=== PATIENT | female | born 1970 | race Caucasian/White ===

== ENCOUNTER → 2017-07-01 06:59 | Outpatient (CLI) | payer OTHER, SELFPAY ==
--- NOTE | 2017-07-01 07:01 | BI_ITS ---
MAMMOGRAPHY - BILATERAL SCREENING REASON FOR EXAM: Female, 47 years old. Routine annual screening examination. PERTINENT HISTORY: Non-contributory. TECHNIQUE: Digital bilateral breast ephraim (3D mammographic acquisition) in the CC and MLO projections. 2-D mediolateral oblique (MLO) and craniocaudad (CC) views of both breasts were obtained. CAD: Full Field Digital Mammography with Computer Added Detection was performed. COMPARISON: Comparison is made with prior study dated March 31, 2016 and March 07, 2015. FINDINGS: Breast Composition: There are scattered areas of fibroglandular density. There are no dominant masses or suspicious calcifications. Stable small bilateral benign appearing intramammary lymph nodes. No other significant abnormalities are identified. There has been no significant change since the prior study. BI/SCREENING MAMM (CAD), BILAT IMPRESSION: Stable bilateral screening mammogram. Yearly follow-up mammogram recommended. (A) ASSESSMENT CATEGORY: BIRADS Category 2: Benign. A letter regarding these results will be sent to the patient by the facility within 30 days. Approximately 10% of breast cancers are not detected by mammography. A normal mammogram should not delay biopsy of a clinically suspicious abnormality. [id number] Electronically Signed: Stefan Maldonado MD at 10:48 EDT Tel [phone], Service support ,
== END ==
PROVIDERS: Family Provider Family Medicine; PCP Family Medicine; Visit Provider Obstetrics & Gynecology
DX: Z12.31 Encounter for screening mammogram for malignant neoplasm of breast (principal)
CPT/HCPCS: 77063; 77067

== ENCOUNTER → 2018-07-12 07:18 | Outpatient (CLI) | payer OTHER, SELFPAY ==
--- NOTE | 2018-07-12 07:21 | BI_ITS ---
MAMMOGRAPHY - BILATERAL SCREENING REASON FOR EXAM: Female, 48 years old. Routine annual screening examination. PERTINENT HISTORY: Non-contributory. TECHNIQUE: Digital bilateral breast ephraim (3D mammographic acquisition) in the CC and MLO projections. 2-D mediolateral oblique (MLO) and craniocaudad (CC) views of both breasts were obtained. CAD: Full Field Digital Mammography with Computer Added Detection was performed. COMPARISON: Comparison is made with prior examination dated July 01, 2017 and March 31, 2016. FINDINGS: Breast Composition: There are scattered areas of fibroglandular density. There are no dominant masses or suspicious calcifications. Stable benign-appearing intramammary lymph nodes in the right breast as well as in the upper lateral aspect of the left breast. No other significant abnormalities are identified. There has been no significant change since the prior study. BI/SCREENING MAMM (CAD), BILAT IMPRESSION: Stable bilateral screening mammogram. Yearly follow-up mammogram recommended. (A) ASSESSMENT CATEGORY: BIRADS Category 2: Benign. A letter regarding these results will be sent to the patient by the facility within 30 days. Approximately 10% of breast cancers are not detected by mammography. A normal mammogram should not delay biopsy of a clinically suspicious abnormality. [id number] Electronically Signed: Stefan Maldonado, at 9:05 EDT , Service support ,
== END ==
PROVIDERS: Family Provider Family Medicine; PCP Family Medicine; Referring Provider Obstetrics & Gynecology; Visit Provider Obstetrics & Gynecology
DX: Z12.31 Encounter for screening mammogram for malignant neoplasm of breast (principal)
CPT/HCPCS: 77063; 77067

== ENCOUNTER → 2019-11-16 07:14 | Outpatient (CLI) | payer OTHER, SELFPAY ==
[2019-05-11 16:48] VITALS: BMI 44.4
--- NOTE | 2019-11-16 07:16 | BI_ITS ---
MAMMOGRAPHY - BILATERAL SCREENING 3-D TOMOSYNTHESIS REASON FOR EXAM: Female, 49 years old. Annual screening mammogram. PERTINENT HISTORY: No significant family history. TECHNIQUE: 2-D mammograms and 3-D Tomosynthesis of the breast (s) were performed. CAD was performed. COMPARISON: 07/12/2018, 07/01/2017 FINDINGS: The breast composition is almost entirely fat. Scattered benign calcifications are seen. No dense spiculated masses or suspicious microcalcifications are identified. No architectural distortion is identified. There is no skin thickening or retraction. Stable lymph nodes. There has been no significant change since the prior study. BI/SCREEN MAMM (CAD) W/SOFÍA BILAT IMPRESSION: No mammographic signs of malignancy. Routine yearly mammograms recommended. ASSESSMENT CATEGORY: BIRADS Category 2: Benign. A letter regarding these results will be sent to the patient by the facility within 30 days. FOLLOW UP RECOMMENDATION: Yearly follow up mammogram recommended. (A) Approximately 10% of breast cancers are not detected by mammography. A normal mammogram should not delay biopsy of a clinically suspicious abnormality. Electronically Signed: Eddie Umana MD at 17:38 EDT , Service support ,
== END ==
PROVIDERS: PCP Family Medicine; Referring Provider Student in an Organized Health Care Education/Training Program; Visit Provider Student in an Organized Health Care Education/Training Program
DX: Z12.31 Encounter for screening mammogram for malignant neoplasm of breast (principal)
CPT/HCPCS: 77063; 77067

== ENCOUNTER → 2021-02-08 08:13 | Outpatient (CLI) | payer OTHER, SELFPAY ==
--- NOTE | 2021-02-08 08:25 | BI_ITS ---
MAMMOGRAPHY - BILATERAL SCREENING REASON FOR EXAM: Female, 51 years old. Routine annual screening examination. PERTINENT HISTORY: Non-contributory. TECHNIQUE: Digital bilateral breast sofía (3D mammographic acquisition) in the CC and MLO projections. 2-D mediolateral oblique (MLO) and craniocaudad (CC) views of both breasts were obtained. CAD: Full Field Digital Mammography with Computer Added Detection was performed. COMPARISON: Comparison is made with prior study dated 11/16/2019 and 07/12/2018. FINDINGS: Breast Composition: The breasts are almost entirely fatty. There are no dominant masses or suspicious calcifications. Stable benign-appearing bilateral intramammary lymph nodes in the upper outer quadrant of both breasts. No other significant abnormalities are identified. There has been no significant change since the prior study. BI/SCRN MAMM (CAD)W/SOFÍA BILAT IMPRESSION: Stable bilateral screening mammogram. Yearly follow-up mammogram recommended. (A) ASSESSMENT CATEGORY: BIRADS Category 2: Benign. A letter regarding these results will be sent to the patient by the facility within 30 days. Approximately 10% of breast cancers are not detected by mammography. A normal mammogram should not delay biopsy of a clinically suspicious abnormality. [id number] Electronically Signed: Stefan Maldonado MD at 8:30 EST , Service support ,
== END ==
PROVIDERS: PCP Family Medicine; Referring Provider Student in an Organized Health Care Education/Training Program; Visit Provider Student in an Organized Health Care Education/Training Program
DX: Z12.31 Encounter for screening mammogram for malignant neoplasm of breast (principal)
CPT/HCPCS: 77063; 77067

== ENCOUNTER 2021-04-11 16:59 | Outpatient (CLI) | payer OTHER, SELFPAY ==
[2021-04-16 12:49] LABS: HPV APTIMA, High Risk Negative (Negative)
== END 2021-04-11 23:59 | disposition short-term general hospital (02) ==
PROVIDERS: PCP Family Medicine; Referring Provider Student in an Organized Health Care Education/Training Program; Visit Provider Student in an Organized Health Care Education/Training Program
DX: Z12.4 Encounter for screening for malignant neoplasm of cervix (principal)
CPT/HCPCS: 87624; 88175; G0145

== ENCOUNTER → 2022-04-28 | Outpatient (CLI) | payer OTHER, SELFPAY ==
--- NOTE | 2022-04-28 16:17 | BI_ITS ---
MAMMOGRAPHY - BILATERAL SCREENING REASON FOR EXAM: Female, 52 years old. Routine annual screening examination. PERTINENT HISTORY: Non-contributory. TECHNIQUE: Digital bilateral breast sofía (3D mammographic acquisition) in the CC and MLO projections. 2-D mediolateral oblique (MLO) and craniocaudad (CC) views of both breasts were obtained. CAD: Full Field Digital Mammography with Computer Added Detection was performed. COMPARISON: Comparison is made with prior study dated 02/08/2021 and 11/16/2019. FINDINGS: Breast Composition: The breasts are almost entirely fatty. There are no dominant masses or suspicious calcifications. Stable benign appearing bilateral intramammary lymph nodes. No other significant abnormalities are identified. There has been no significant change since the prior study. BI/SCRN MAMM (CAD)W/SOFÍA BILAT IMPRESSION: Stable bilateral screening mammogram. Yearly follow-up mammogram recommended. (A) ASSESSMENT CATEGORY: BIRADS Category 2: Benign. A letter regarding these results will be sent to the patient by the facility within 30 days. Approximately 10% of breast cancers are not detected by mammography. A normal mammogram should not delay biopsy of a clinically suspicious abnormality. [id number] Electronically Signed: Stefan Maldonado MD at 8:46 EST ,
== END | disposition home or self-care (01) ==
LOC: OPBI 04-29 07:31
PROVIDERS: PCP Family Medicine; Visit Provider Student in an Organized Health Care Education/Training Program
DX: Z12.31 Encounter for screening mammogram for malignant neoplasm of breast (principal)
CPT/HCPCS: 77063; 77067

== ENCOUNTER 2022-09-11 07:23 | Day surgery (SDC) | payer OTHER, SELFPAY ==
[2022-09-11] VITALS (7 sets, daily range): BP systolic 104–136; BP diastolic 64–74; PULSE 56–69; RESP 1–17; TEMP 36.2–36.6; O2SAT 97–100; BMI 48.0
[2022-09-11] MEDS: Lactated Ringers 1,000 ML 15 ML IV (07:46)
[2022-09-11 08:11] LABS: Bedside Glucose 152 mg/dL (74-106)
--- NOTE | 2022-09-11 08:17 | HP.PCM_ITS ---
HPI - General HPI Narrative GLADIS TEIXEIRA, is a 52 F who presents for screening colonoscopy. The patient denies any abdominal pain or blood in the stool. She has no family history of colon cancer. She has never had a colonoscopy in the past. [facility] Medical History Arthritis Excessive somnolence disorder Hx LEEP (loop electrosurgical excision procedure), cervix, Long-term insulin use in type 2 diabetes Non-smoker Obesity, morbid Obstructive sleep apnea on CPAP BETARICE (obstructive sleep apnea) plantar fasciitis surgery Seasonal allergies Type 2 diabetes mellitus Vertigo Home Medications glyburide 5 mg tablet 5 mg PO BID 05/02/19 [History Last Taken Unknown] lisinopril 10 mg tablet 10 mg PO DAILY 05/02/19 [History Last Taken 09/11/22] dulaglutide 1.5 mg/0.5 mL subcutaneous pen injector (Trulicity) 1.5 mg (0.5 mL) subcut QWEEK #2 mL 05/11/19 [Rx Last Taken Unknown] insulin glargine 100 unit/mL (3 mL) subcutaneous pen (Basaglar KwikPen U-100 Insulin) 30 unit subcut .q hs 05/11/19 [History Last Taken Unknown] loratadine 10 mg tablet 10 mg PO DAILY 05/11/19 [History Last Taken Unknown] Allergy/AdvReac Type Severity Reaction Status Date / Time codeine Allergy Intermediate Vomiting Verified 09/11/22 07:45 metformin HCl Allergy Mild Diarrhea Verified 09/11/22 07:45 [From Glucophage] Family History Unknown Arthritis Diabetes Hormone disorder Polycystic ovaries Surgical History H/O dilation and curettage H/O lateral meniscus repair of left knee H/O: History of tubal ligation Hx of cholecystectomy S/P endometrial ablation S/P foot surgery, right S/P LASIK surgery of both eyes Social History Smoking Status: Never smoker Past Medical/Surgical History Planned Operation Planned Operative Procedure/s: CSCOPE Previous Hospitalizations/Surgeries HX Hospitalizations: No Any Problems With Anesthesia: No You/Your Family Experience Fever (Hyperthermia) With Anes: No Cholinesterase deficiency: No Cardiovascular Hx of Irregular Heartbeat and/or Afib: No Hx Heart Attack: No Hx Congestive Heart Failure: No Hx Hypertension: No Hx Pacemaker: No Respiratory Hx Chronic Obstructive Pulmonary Disease (COPD): No Hx Asthma: No Hx Emphysema: No Hx Sleep Apnea: Yes CPAP: No BIPAP: Yes Hx Respiratory Tract Infection/Cold (presently): No Result (for STOP score): Positive Smoking Status: Never smoker Gastrointestinal Hx Gastroesophageal Reflux: Yes Controlled With Meds: Yes Hx Ulcer: No Neurological Hx Seizures: No Hx Head/Neck Injury: No Hx Headaches: Yes Hx Back Injury/Pain: No Does patient have nerve stimulator: No Miscellaneous Recent Exposure to Contagious Disease: No Allergies codeine Allergy (Intermediate, Verified 09/11/22 07:45) Vomiting metformin HCl [From Glucophage] Allergy (Mild, Verified 09/11/22 07:45) Diarrhea Discharge Is Pt Admitted From a Senior Care, or a Half-Way: No After D/C, Where Do you Plan to Go: Return Home Vital Signs Vital Signs Vital Signs: 09/11/22 07:48 09/11/22 07:48 Temperature 97.8 F Temperature Source Temporal Pulse Rate 69 Respiratory Rate 17 Respiratory Pattern Normal Blood Pressure 136/74 H Blood Pressure Mean 94 Blood Pressure Source Monitor Blood Pressure Position Semi-Fowlers Blood Pressure Location Left Arm Pulse Ox 97 Oxygen Delivery Method Room Air Weight Weight: 288 lb 9.361 oz Body Mass Index (BMI) 48.0 Physical Exam Const alert and oriented x3 HEENT normocephalic Eyes PERRL Resp normal respiratory effort and normal air movement Cardio regular rate and regular rhythm GI soft to palpation, non-tender and non-distended Extremity normal to inspection Assessment & Plan Assessment/Plan (1) Encounter for screening for malignant neoplasm of colon: PLAN: I explained endoscopy in detail to the patient. I explained the risks including but not limited to stroke or heart attack with anesthesia, perforation of the GI tract, bleeding, infection. I explained that any of these could necessitate further emergency surgery. The patient understands and all questions were answered sufficiently. The patient wishes to proceed with procedure. Harrison Cruz MD Pager: [facility] [address] [place] [address], [address] [place] [phone] Office: Surgery Risks - Colonoscopy Risks Include but are not Limited To: Risks include but are not limited to: Bleeding, perforation requiring further surgery, inability to complete colonoscopy requiring barium enema.
--- NOTE | 2022-09-11 09:08 | OP.CCLET_ITS ---
09/11/2022 Kendall Garcia [address] [place] [place] [address] Re : Colonoscopy procedure for Myra Colunga Dear Dr. Garcia This procedure was performed on Sunday, September 11, 2022. My impressions and recommendations are as follows: Impressions : - The entire examined colon is normal on direct and retroflexion views. - No specimens collected. Recommendations : - Discharge patient to home. - Resume previous diet. - Continue present medications. - Repeat colonoscopy in 10 years for screening purposes. My findings are described in the full procedure note, which is enclosed. If I can be of further assistance, please feel free to contact me at Doctor phone number(s): , Work: . Sincerely, Harrison Cruz MD 09/11/2022 9:07:36 AM This report has been signed electronically.
--- NOTE | 2022-09-11 09:08 | OP.COLON_ITS ---
Patient Name: Myra Colunga Procedure Date: 09/11/2022 8:46 AM Date of : 1970 Age: 52 Procedure: Colonoscopy Indications: Screening for colorectal malignant neoplasm Providers: Harrison Cruz MD Referring MD: Harrison Cruz MD Medicines: Monitored Anesthesia Care Patient Profile: This is a 52 year old female. Refer to note in patient chart for documentation of history and physical. Last Colonoscopy: none. The patient's first colonoscopy is today. Complications: No immediate complications. Procedure: Pre-Anesthesia Assessment: - Prior to the procedure, a History and Physical was performed, and patient medications and allergies were reviewed. The patient's tolerance of previous anesthesia was also reviewed. The risks and benefits of the procedure and the sedation options and risks were discussed with the patient. All questions were answered, and informed consent was obtained. Prior Anticoagulants: The patient has taken no previous anticoagulant or antiplatelet agents. After reviewing the risks and benefits, the patient was deemed in satisfactory condition to undergo the procedure. After I obtained informed consent, the scope was passed under direct vision. Throughout the procedure, the patient's blood pressure, pulse, and oxygen saturations were monitored continuously. The pediatric colonoscope was introduced through the anus and advanced to the cecum, identified by appendiceal orifice and ileocecal valve. The colonoscopy was performed without difficulty. The patient tolerated the procedure well. The quality of the bowel preparation was good. Scope In: 8:53:10 AM Scope Withdrawal Time 0 hours 6 minutes 43 seconds Scope Out: 9:05:23 AM Total Procedure Duration Time 0 hours 12 minutes 13 seconds Findings: The entire examined colon appeared normal on direct and retroflexion views. Impression: - The entire examined colon is normal on direct and retroflexion views. - No specimens collected. Recommendation: - Discharge patient to home. - Resume previous diet. - Continue present medications. - Repeat colonoscopy in 10 years for screening purposes. Procedure Code(s): --- Professional --- 71988, Colonoscopy, flexible; diagnostic, including collection of specimen(s) by brushing or washing, when performed (separate procedure) Diagnosis Code(s): --- Professional --- Z12.11, Encounter for screening for malignant neoplasm of colon CPT copyright 2017 [employer]. All rights reserved. The codes documented in this report are preliminary and upon federal mediation commissioner review may be revised to meet current compliance requirements. Harrison Cruz MD 09/11/2022 9:07:36 AM This report has been signed electronically. Number of Addenda: 0 Note Initiated On: 09/11/2022 8:46 AM
== END 2022-09-11 09:57 | disposition home or self-care (01) ==
LOC: EN 07:24 → AC 07:24
PROVIDERS: PCP Family Medicine; Referring Provider Surgery; Visit Provider Surgery
PROC: 0DJD8ZZ Inspection of Lower Intestinal Tract, Via Natural or Artificial Opening Endoscopic (ICD-10-PCS; CPT 45378; principal; 2022-09-11 08:25)
DX: Z12.11 Encounter for screening for malignant neoplasm of colon (principal); E66.01 Morbid (severe) obesity due to excess calories; Z68.42 Body mass index [BMI] 45.0-49.9, adult; E11.9 Type 2 diabetes mellitus without complications; Z79.4 Long term (current) use of insulin; G47.33 Obstructive sleep apnea (adult) (pediatric); Z79.899 Other long term (current) drug therapy
CPT/HCPCS: 45378; 82962; J7120; J2405

== ENCOUNTER → 2023-03-15 | Outpatient (CLI) | payer OTHER, SELFPAY ==
[2023-03-19 10:09] LABS: HPV APTIMA, High Risk Negative (Negative)
== END | disposition home or self-care (01) ==
LOC: LABSPEC 16:33
PROVIDERS: PCP Family Medicine; Referring Provider Advanced Practice Midwife; Visit Provider Advanced Practice Midwife
DX: Z12.4 Encounter for screening for malignant neoplasm of cervix (principal)
CPT/HCPCS: 87624; 88175; G0145

== ENCOUNTER → 2023-03-23 | Outpatient (CLI) | payer OTHER, SELFPAY ==
--- NOTE | 2023-03-23 07:13 | US_ITS ---
INDICATION: Postmenopausal bleeding. EXAMINATION: Ultrasound US Transvaginal Non-OB TECHNIQUE: Transvaginal (for optimal evaluation of the adnexa) pelvic ultrasound was performed. Grayscale, spectral waveform, and color flow Doppler evaluation of the adnexa. COMPARISON: No relevant prior comparison study available FINDINGS: UTERUS: The uterus measures 4.5 x 7.4 x 3.8 cm. There is a 1.7 x 1.5 x 1.9 cm round intramural focus within the anterior uterine fundus suggestive of a fibroid. The endometrial stripe measures 6.6 mm in AP diameter which is thickened for a postmenopausal patient. RIGHT OVARY: There is nonvisualization of the right ovary. LEFT OVARY: There is nonvisualization of the left ovary. FREE FLUID: None. US/Transvaginal Non- IMPRESSION: Thickened endometrial stripe. Uterine fibroid. Nonvisualization of the ovaries secondary to overlying bowel gas. Electronically Signed: Ita Owens MD at 8:28 EST ,
== END | disposition home or self-care (01) ==
LOC: US 07:12
PROVIDERS: PCP Family Medicine; Referring Provider Advanced Practice Midwife; Visit Provider Advanced Practice Midwife
DX: N95.0 Postmenopausal bleeding (principal)
CPT/HCPCS: 76830

== ENCOUNTER 2023-04-27 12:08 | Day surgery (SDC) | payer OTHER, SELFPAY ==
--- OUTSIDE RECORDS SUMMARY | 2023-04-27 12:30 | XMS RPT_ITS | CCD ---
Author Name Unknown Address [address] [place] [address] Organization [facility] Care Team Providers Care Silk Spotter Name Role Phone Mandy Gipson DC Unavailable JAVON RAMOS Admitting Unavailable JAVON RAMOS Attending Unavailable JAVON RAMOS Primary Care Unavailable JAVON RAMSO Consulting Unavailable PROVIDER, UNKNOWN Consulting Unavailable PROVIDER, UNKNOWN Consulting Unavailable PROVIDER, UNKNOWN Consulting Unavailable Mandy Gipson DC Unavailable Javon Ramos Primary Care Provider [phone] Javon Nickerson MD Unavailable [phone] Javon Ramos MD Unavailable Endocrinology Provider Unavailable Unavailab denis Lim, Dr. Bills Unavailable Sarah De Jesus MD Unavailable Andrew HEAVY EQUIPMENT SALES MANAGER, Yary Unavailable Day HEAVY EQUIPMENT SALES MANAGER, Emmie Unavailable Unavailable Gene HEAVY EQUIPMENT SALES MANAGER, Zina Ware Unavailable Unavailable Leonardo HEAVY EQUIPMENT SALES MANAGER, Jade Unavailable Unavailable Irwin HORVATH, Amanda Farooq Unavailable [phone] Arlen Otero Unavailable Unavailable Shanna RN, Mackenzie L Unavailable Unavail able Hernan CALERO, Maria Elena Unavailable Unavailable Geraldine Griffith RN Unavailable Tenzin HEAVY EQUIPMENT SALES MANAGER, Sarah Almendarez Unavailable Unavailab le Vess HEAVY EQUIPMENT SALES MANAGER, Maximilian Brown Unavailable Unavailable Shukri HEAVY EQUIPMENT SALES MANAGER, Lana Unavailable Unavailangelica e Unavailable Unavailable NAOMI LALA Attending Unavailable LANCE REGALADO Referring Unavailable JAVON RAMOS Primary Care Unavailable JAVON NICKERSON Admitting Unavailable JAVON NICKERSON Attending Unavailable JAVON NICKERSON Referring Unavailable JAVON RAMOS Primary Care Unavailable LANCE REGALADO Referring Unavailable VACCJAVON MONTOYA Primary Care Unavailable LANCE REGALADO Attending Unavailable JAVON NICKERSON Attending Unavailable JAVON RAMOS Primary Care Unavailable NICHOLAS PEDRAZAEK Attending Unavailable JAVON RAMOS [facility] Unavailable JAVON NICKERSON Attending Unavailable JAVON RAMOS Referring Unavailable JAVON RAMOS Primary Care Unavailable MARII GAVIN Attending Unavailable LANCE REGALADO Referring Unavailable JAVON RAMOS Primary Care Unavailable Allergies Allergy Classification Reported Allergen(s) Allergy Type Date of Onset Reaction(s) Facility (18 sources) acetaminophen / codeine drug allergy 7 Nausea [facility] Work Phone: (15 sources) Codeine Drug Allergy 0 Nausea And Vomiting [facility] (15 sources) metFORMIN Drug Allergy 8 [facility] (3 sources) metFORMIN Drug Allergy 4 [facility], [facility]. Medications Current Medications Medication Drug Class(es) Dates Sig (Normalized) Sig (Original) cholecalciferol 0.1 mg oral tablet (8 sources) Vitamin D Start: 02-08-2023 take 1 tablet by mouth once daily cholecalciferol (Vitamin D-3) 100 MCG (4000 UT) tablet Take 4,000 Units by mouth daily. 0 02/08/2023 Active 0.5 ml dulaglutide 3 mg/ml auto-injector (18 sources) GLP-1 Receptor Agonist Start: 01-14-2023 Trulicity 1.5 MG/0.5ML solution pen-injector INJECT 1 PEN-INJECTOR SUBCUTANEOUSLY ONCE A WEEK 0 01/14/2023 Active Completed/Discontinued Medications Medication Drug Class(es) Dates Sig (Normalized) Sig (Original) Accu-Chek Guide w/Device Kit (3 sources) Start: 10-02-2019 End: 11-12-2021 Accu-Chek Guide w/Device Kit ; 1 (one) Kit as needed for 0 days Quantity: 1 {Each} Refills: 0 Ordered: 12-Nov-2021 TE Morales Start: 02-Oct-2019 End: 12-Nov-2021 Status: Inactive Comments: Medication taken as needed. Problems Active Problems Problem Classification Problem Date Documented Da te Episodic/Chronic Abdominal hernia (8 sources) Hiatal hernia; Translations: [Diaphragmatic hernia without obstruction or gangrene] Onset: 03-02-2023 03-02-2023 Episodic Abdominal pain (2 sources) Indigestion; Translations: [Epigastric pain] 01-21-2023 Episodic Diabetes mellitus with complications (18 sources) Diabetes mellitus; Translations: [Diabetes mellitus without mention of complication, type II or unspecified type, uncontrolled] 07-11-2014 Chronic Diabetes mellitus without complication (20 sources) Type 2 diabetes mellitus without complication; Translations: [Type 2 diabetes mellitus without complications] Onset: 01-21-2023 01-21-2023 Chronic Diabetes mellitus without complication (3 sources) Hyperglycemia; Translations: [Hyperglycemia, unspecified] 11-17-2013 Episodic Essential hypertension (20 sources) Essential hypertension; Translations: [Essential (primary) hypertension] Onset: 01-21-2023 01-21-2023 Chronic Gastritis and duodenitis (8 sources) Chronic superficial gastritis; Translations: [Chronic superficial gastritis without bleeding] Onset: 03-01-2023 03-01-2023 Chronic Immunizations and screening for infectious disease (3 sources) Immunization due; Translations: [Encounter for immunization] 11-12-2021 Episodic Inflammation; infection of eye (except that caused by tuberculosis or sexually transmitteddisease) (3 sources) Conjunctivitis; Translations: [Other mucopurulent conjunctivitis, unspecified eye] 02-05-2020 Episodic Nutritional deficiencies (1 source) Vitamin D deficiency; Translations: [Vitamin D deficiency, unspecified] 02-08-2023 Chronic Other aftercare (20 sources) Long-term current use of insulin; Translations: [senior care (current) use of insulin] 11-26-2022 Episodic Other aftercare (3 sources) Drug indicated; Translations: [Other laborer marine terminal (current) drug therapy] 05-11-2011 Episodic Other aftercare (2 sources) senior care (current) use of insulin; Translations: [intermediate accountant (current) use of insulin (HCC)] Onset: 03-02-2023 Episodic Other and unspecified benign neoplasm (8 sources) Gastric polyp; Translations: [Polyp of stomach and duodenum] Onset: 03-02-2023 03-02-2023 Episodic Other circulatory disease (3 sources) Nevus, non-neoplastic 02-26-2012 Episodic Other disorders of stomach and duodenum (3 sources) Nonulcer dyspepsia; Translations: [Functional dyspepsia] Onset: 03-02-2023 03-02-2023 Episodic Other disorders of stomach and duodenum (1 source) Functional dyspepsia; Translations: [Functional dyspepsia] Onset: 03-02-2023 Episodic Other endocrine disorders (20 sources) Polycystic ovaries; 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] Onset: 08-04-2016 08-04-2016 Chronic Other endocrine disorders (8 sources) Diabetes insipidus; 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] Onset: 08-04-2016 08-04-2016 Chronic Other infections; including parasitic (3 sources) Personal history of other infectious and parasitic diseases 11-26-2022 Episodic Other liver diseases (3 sources) Elevated liver enzymes level; Translations: [Abnormal levels of other serum enzymes] 10-10-2012 Episodic Other non-traumatic joint disorders (20 sources) Arthritis; Translations: [Unspecified osteoarthritis, unspecified site] Onset: 08-04-2016 08-04-2016 Chronic Other nutritional; endocrine; and metabolic disorders (20 sources) Body mass index 40+ - severely obese; Translations: [Morbid (severe) obesity due to excess calories] 01-21-2023 Chronic Other nutritional; endocrine; and metabolic disorders (20 sources) Morbid obesity; Translations: [Morbid (severe) obesity due to excess calories] Onset: 01-15-2023 01-15-2023 Chronic Other nutritional; endocrine; and metabolic disorders (3 sources) Obesity; Translations: [Obesity, unspecified] 11-17-2013 Chronic Other nutritional; endocrine; and metabolic disorders (2 sources) Morbid (severe) obesity due to excess calories; Translations: [Morbid (severe) obesity due to excess calories (HCC)] Onset: 03-11-2023 Chronic Other nutritional; endocrine; and metabolic disorders (2 sources) Body mass index (BMI) 45.0-49.9, adult; Translations: [Body mass index (BMI) 45.0-49.9, adult (HCC)] Onset: 03-11-2023 Chronic Other nutritional; endocrine; and metabolic disorders (2 sources) Weight loss; Translations: [Weight Loss] Onset: 03-11-2023 Episodic Other screening for suspected conditions (not mental disorders or infectious disease) (20 sources) Decreased vitamin B12 level; Translations: [Other specified abnormal findings of blood chemistry] 02-08-2023 Episodic Other skin disorders (3 sources) Skin tag; Translations: [Other hypertrophic disorders of the skin] 02-26-2012 Episodic Other upper respiratory disease (15 sources) Seasonal allergic rhinitis; Translations: [Other seasonal allergic rhinitis] 11-26-2022 Chronic Other upper respiratory infections (15 sources) Acute frontal sinusitis; Translations: [Acute frontal sinusitis, unspecified] 08-27-2022 Episodic Pneumonia (except that caused by tuberculosis or sexually transmitted disease) (3 sources) Left lower zone pneumonia; Translations: [Pneumonia, unspecified organism] 01-23-2015 Episodic Residual codes; unclassified (20 sources) Obstructive sleep apnea syndrome; Translations: [Obstructive sleep apnea (adult) (pediatric)] Onset: 01-21-2023 01-21-2023 Chronic Past or Other Problems Problem Classification Problem Date Documented Da te Episodic/Chronic Deficiency and other anemia (18 sources) Anemia; Translations: [Anemia, unspecified] Onset: 08-04-2016 08-04-2016 Episodic Other bone disease and musculoskeletal deformities (20 sources) Segmental and somatic dysfunction; Translations: [Segmental and somatic dysfunction of lumbar region] Onset: 08-04-2016 08-04-2016 Episodic Spondylosis; intervertebral disc disorders; other back problems (18 sources) Lumbar radiculopathy; Translations: [Radiculopathy, lumbar region] Onset: 08-04-2016 08-04-2016 Episodic Unclassified (3 sources) Cold Symptoms - Symptoms include nasal congestion, sore throat, dry cough and general malaise, but do not include fever. The onset was sudden 9 day(s) ago. The symptoms occur constantly. The patient describes this as worsening. Current treatment includes non-prescription cold medication. Risk factors do not include smoking. Note for Upper respiratory infection : -At home covid test negative 08-27-2022 Unclassified (1 source) Well adult female - The patient feels well with no complaints, has good energy level and is sleeping well. The patient has a balanced diet. The patient sleeps 8 hours per night. 11-01-2020 Unclassified (1 source) [ADDITIONAL REASON] Follow up for multiple chronic conditions - The patient is here for follow-up of diabetes, obesity and other condition(s) (BEATRICE). The patient always takes the prescribed medications. No side effects noted. The patient has low activity level and no regular exercise program. The patient's glucose levels are monitored daily (see log). The patient states that weight is unchanged, mood is unchanged and sleep patterns have improved. Note for Multiple chronic conditions follow-up : -Last documented visit with endocrine was 04/2019. She is released from their care. 11-01-2020 Unclassified (3 sources) Well adult female 10-02-2019 Unclassified (3 sources) Follow up for multiple chronic conditions - The patient is here for follow-up of diabetes, obesity and other condition(s) (BEATRICE). The patient always takes the prescribed medications. No side effects noted. The patient has low activity level and no regular exercise program. The patient's glucose levels are monitored daily (see log). The patient states that weight is unchanged, mood is unchanged and sleep patterns have improved. Note for Multiple chronic conditions follow-up : -At last visit stopped Basaglar and started NOvolin. Has glucose log with her today. 03-16-2019 Unclassified (3 sources) Pre-operative clearance - Surgical procedure(s) planned: arthroscopy. Surgeon: (Dr Delgado) and Location of procedure: ([facility]) Note for Pre-operative clearance : -Her diabetes is not being treated with medication and her A1c is going up. Her surgery was delayed due to illness of Dr Kelley and she is now seeing Dr Delgado. 01-13-2017 Unclassified (3 sources) Pre-operative clearance - Note for Pre-operative clearance : -Foot surgery with general anesthesia. 06-10-2016 Unclassified (3 sources) follow up bp - follow up bp and glucoseno exercise, gaining weight againno chest pain, digestion prob 07-15-2015 Unclassified (3 sources) Cold Symptoms - Symptoms include sore throat, productive cough and general malaise, but do not include nasal congestion, ear pain or fever. The onset was gradual 6 day(s) ago. The symptoms occur constantly. The patient describes this as worsening. Current treatment includes cough suppressants (with codeine). Risk factors do not include smoking. The patient has not been exposed to an individual with similar symptoms. Note for Upper respiratory infection : -Went to urgent care at onset and was negative for strep. bought her some OTC Cherratussin with codine and it made her vomit. She now feels worse. 01-23-2015 Unclassified (3 sources) Follow-up for multiple chronic conditions (RAH) - The patient is here for follow-up of diabetes and obesity. The patient has stopped the recommended medications (cites she had too many low glucose readings with glyburide and ate too many carbs to keep it level, therefore she could not lose weight). The patient has an active lifestyle but no regular exercise program (tries to walk, difficult to do in winter) and has been following previous dietary instructions. The patient's glucose levels are monitored daily and out of office blood pressure checks occur occasionally. The patient has not been seen by an carpentry specialist in the past 12 months, experienced changes in vision since the last visit, had numbness in the feet, had tingling in the feet or had burning in the feet. 01-14-2015 Unclassified (3 sources) elevated glucose - Here to discuss need for medication. Home glucoses fasting range 140-160. She is trying to diet and exercise. She is following a low carb diet (usually less than 20carbs a day). Her fasting glucoses are often higher than later in the day. She trialed Metformin when she was trying to conceive and had PCOS and it caused diarrhea. Reports her brother also cannot tolerate it either.Had flu vaccine this year. 01-01-2014 Unclassified (3 sources) Well adult female - The patient feels well with minor complaints and has decreased energy level. The patient does not exercise. The patient sleeps 6 hours per night. Note for Well adult female : -Here to discuss recent labs. Does not need progress clerk care, goes to Dr Kerr. 11-17-2013 Unclassified (3 sources) Cold Symptoms - Symptoms include nasal congestion, runny nose, dry cough, productive cough, headache and facial pain (behind the eyes), but do not include fever. The onset was gradual 9 day(s) ago. The symptoms occur constantly. The patient describes this as moderate in severity and worsening. Current treatment includes non-prescription cold medication (sudafed). 08-18-2012 Unclassified (3 sources) multiple things - Has skin tag in left axilla that is catching on her clothing. She has 2 red spots on right abdomen and right lower leg that are itchy. She brought along a copy of screening labs from last year and wonders if she should have them done again. She is not fasting today.She is asking about having a TSH due to fatigue. 02-26-2012 Unclassified (3 sources) Cold Symptoms - Symptoms include nasal congestion (post nasal drainage, occasional nosebleeds), runny nose (at onset, resolved now), sore throat (at onset, resolved now), scratchy throat (tickles, feels dry in throat and nasal passages) and productive cough (thick from PND), but do not include fever. The onset was gradual 1 month(s) ago (started with a cold, now just sinus irritation). The symptoms occur constantly. The patient describes this as moderate in severity. Current treatment includes an oral decongestant (occasional use of Sudafed) and humidifier use (on furnace and in bedroom, used Neti-pot rinse). Risk factors do not include smoking. The patient has not been exposed to an individual with similar symptoms. Medical History Includes seasonal allergies. Note for Cold Symptoms : They have wood heat, she feels that is part of the problem. 04-04-2011 Unclassified (2 sources) [ADDITIONAL REASON] Well adult female - The patient feels well with no complaints, has good energy level and is sleeping well. The patient has a balanced diet. The patient sleeps 8 hours per night. 11-01-2020 Results Test Name Value Interpretation Reference Range Facil ity Vital Signs Date Time Vital Sign Value Performing Clinician Simran ambriz 03-19-2023 10:31-0500 Body height 165.1 cm Marii Gavin MD Work Phone: [facility] 03-19-2023 10:31-0500 Body mass index (BMI) [Ratio] 44.93 kg/m2 Marii Gavin MD Work Phone: [facility] 03-19-2023 10:31-0500 Body weight 122.47 kg Marii Gavin MD Work Phone: [facility] 03-19-2023 10:31-0500 Diastolic blood pressure 80 mm[Hg] Marii Gavin MD Work Phone: [facility] [employer] 03-19-2023 10:31-0500 Heart rate 73 /min Marii Gvain MD Work Phone: [facility] [employer] 03-19-2023 10:31-0500 SaO2% (BldA) [Mass fraction] 98 % Marii Gavin MD Work Phone: [facility] [employer] 03-19-2023 10:31-0500 Systolic blood pressure 140 mm[Hg] Marii Farooq Work Phone: [facility] [employer] 03-11-2023 12:12-0500 Body height 166.4 cm Nils Pedraza MD Work Phone: [facility] [employer] 03-11-2023 12:12-0500 Body mass index (BMI) [Ratio] 46.64 kg/m2 Nils Pedraza MD Work Phone: [facility] [employer] 03-11-2023 12:12-0500 Body weight 129.09 kg Nils Pedraza MD Work Phone: [facility] [employer] 03-11-2023 12:12-0500 Diastolic blood pressure 83 mm[Hg] Nils Pedraza MD Work Phone: [facility] [employer] 03-11-2023 12:12-0500 Heart rate 66 /min Nils Pedraza MD Work Phone: [facility] [employer] 03-11-2023 12:12-0500 Systolic blood pressure 129 mm[Hg] Nils Pedraza MD Work Phone: [facility] [employer] 03-11-2023 09:04-0500 Body height 165.1 cm Naomi Gonzales CNP Work Phone: [facility] [employer] 03-11-2023 09:04-0500 Body mass index (BMI) [Ratio] 46.76 kg/m2 Naomi Gonzales CNP Work Phone: [facility] [employer] 03-11-2023 09:04-0500 Body weight 127.46 kg Naomi Gonzales CNP Work Phone: [facility] [employer] 03-11-2023 09:04-0500 Diastolic blood pressure 82 mm[Hg] Naomi Gonzales CNP Work Phone: [facility] 03-11-2023 09:04-0500 Heart rate 77 /min Naomi Gonzales CNP Work Phone: [facility] 03-11-2023 09:04-0500 Respiratory rate 14 /min Naomi Gonzales CNP Work Phone: [facility] [employer] 03-11-2023 09:04-0500 SaO2% (BldA) [Mass fraction] 96 % Naomi Gonzales CNP Work Phone: [facility] Encounters Encounter Date Encounter Type Care Provider Facility Start: 03-19-2023 End: 03-19-2023 Historical Summary Javon Ramos MD Work Phone: [facility]. Start: 03-19-2023 End: 03-19-2023 [facility] Start: 03-19-2023 End: 03-19-2023 Office consultation new/estab patient 40 min Marii Gavin MD Work Phone: [facility] Procedures Date Procedure Procedure Detail Performing Clinician Start: 03-19-2023 Ecg routine ecg w/le ast 12 lds w/i&r Marii Gavin MD Work Phone: Start: 03-15-2023 End: 03-15-2023 Microscopic examination of cervical Papanicolaou smear Javon Ramos MD Work Phone: Plan of Treatment Date Care Activity Detail Author Start: 2030 RSV Immunization age d 60 or older (1 - 1-dose 60+ series) RSV Immunization aged 60 or older (1 - 1-dose 60+ series) [facility] Start: 02-06-2024 Hemoglobin A1c measurement Diabetes: Hemoglobin A1C [facility] Start: 02-06-2024 Lipid panel Lipid Panel [facility] Start: 05-11-2023 End: 02-09-2024 25-hydroxyvitamin D3 [Mass/volume] in Serum or Plasma Vitamin D Deficiency Screening (Vit D 25) Lab Routine Vitamin D deficiency Expected: 05/11/2023 (Approximate), Expires: 02/09/2024 [facility] Work Phone: Immunizations Immunization Date Immunization Notes Care Provider Fa cility 02-14-2022 COVID-Moderna (Bivalent 50 MCG/0.5 ML IM BST) Javon Ramos MD Work Phone: [facility]; [facility] 02-14-2022 influenza virus vaccine, unspecified formulation Javon Nickerson MD Work Phone: [facility] 11-12-2021 TD(adult) unspecifie d formulation Javon Ramos MD Work Phone: [employer]; [facility] Payers Date Payer Category Payer Private Health Insurance [id number] 2013 Private Health Insurance [facility] U[employer] OPT [id number] 2013-Present [address] [address] [place] [address] Commercial [id number] 1970 Unknown [id number] Unknown R Social History Date Type Detail Facility Start: 01-21-2023 [facility] Start: 01-21-2023 Tobacco use and exposure Smoke less tobacco non-user [facility] Start: 01-21-2023 End: 03-02-2023 Alcohol intake Ex-drinker (finding) [facility] Start: 1970 Sex Assigned At Female [facility] Start: 01-18-2023 Gender identity Identifies as female gender (finding) [facility] Start: 01-18-2023 Sexual orientation Heterosexual (fin ding) [facility] Start: 01-21-2023 End: 03-19-2023 History of Social function [employer]; [employer] Start: 01-21-2023 End: 03-19-2023 Tobacco use panel [facility] Start: 03-19-2023 Alcohol intake Current drinke r of alcohol (finding) [facility] Start: 03-19-2023 Alcohol Comment rarely twice yearly [facility] Tobacco Use: Tobacco Use: ; N ever smoker. [facility] Procedure Code Equipment Code Equipment Origin al Text Equipment Identifier Dates Contour Next Nany t In Vitro Strip ; 1 (one) Each twice a day for 0 days Quantity: 180 {Each} Refills: 3 Ordered: 12-Nov-2021 Andrew, TE Yary Start: 12-Nov-2021 Comments: may adjust quantity to suit patient needs [id number] Start: 11-12-2021 Clinical Notes 01-21-2023 to 03-19-2023 Marii Gavin MD - 03/19/2023 10:40 AM Neida Gagnon MA - 03/11/2023 12:30 PM Mehul Pedraza MD - 03/11/2023 12:30 PM WAN Valentine CNP - 03/11/2023 9:10 AM EST Note Date & Type Note Facility 03-19-2023 History of Presen t illness Narrative Images from the original note were not included. [facility] [address] [place] [address] [facility] [address] Dept: [phone] Dept Visit type: New : 1970 Reason for Visit: Pre-op Exam Assessment and Plan Pre op: asymptomatic, no murmur, euvolemic, no Q waves, acceptable activity tolerance. She may proceed to surgery without further need for testing. Low risk undergoing intermediate risk surgery. -weight loss and risk factor control Follow up if symptoms worsen or fail to improve. Subjective HPI Myra Colunga is a 53 year old female who presents for preop evaluation. She reports feeling fine, only complaint is knee pain from osteoarthritis. No chest pain or SOB, METs>4. No prior CAD, CVA or CHF. Nonsmoker. Review of Systems Respiratory: Negative for shortness of breath and wheezing. Cardiovascular: Negative for chest pain, palpitations and leg swelling. Musculoskeletal: Positive for arthralgias. Neurological: Negative for dizziness and syncope. Allergies Allergen Reactions Codeine Nausea And Vomiting Other reaction(s): Vomiting Metformin Hcl GI upset Outpatient Medications Prior to Visit Medication Sig Dispense Refill Basaglar KwikPen 100 UNIT/ML pen cholecalciferol (Vitamin D-3) 100 MCG (4000 UT) tablet Take 4,000 Units by mouth daily. Cyanocobalamin (Vitamin B-12) [address] 1 Dose under the tongue daily. glyBURIDE (Diabeta) 5 MG tablet lisinopril 10 MG tablet Loratadine 10 MG capsule Trulicity 1.5 MG/0.5ML solution pen-injector INJECT 1 PEN-INJECTOR SUBCUTANEOUSLY ONCE A WEEK Respiratory Therapy Supplies (CareTouch CPAP & BIPAP Hose) [facility] [place]-administered medications prior to visit. Past Medical History: Diagnosis Date Arthritis Diabetes (HCC) Hypertension Joint pain Morbid obesity, unspecified obesity type (HCC) 01/15/2023 BEATRICE (obstructive sleep apnea) Social History Tobacco Use Smoking status: Never Smokeless tobacco: Never Substance Use Topics Alcohol use: Yes Comment: rarely twice yearly Past Surgical History: Procedure Laterality Date SECTION, LOW TRANSVERSE 2000 and 2001 pfannenstiel DILATION AND CURETTAGE OF UTERUS 2008 ENDOMETRIAL ABLATION 2012 EYE SURGERY 2006 FOOT SURGERY 2006 plantar fascitis FOOT SURGERY 2006 correction of two claw toes LAP,CHOLECYSTECTOMY (HISTORICAL) 2003 MENISCECTOMY 2018 OTHER SURGICAL HISTORY N/A 1995 LEEP SURGERY TUBAL LIGATION 2001 concurrent to last UPPER GI ENDOSCOPY,EXAM (HISTORICAL) 03/02/2023 Family History Problem Relation Name Age of Onset Arthritis Mother Tiesha Berkowitz Arthritis Father Dimitri Berkowitz Cancer Father Dimitri Berkowitz Diabetes Father Dimitri Berkowitz Arthritis Brother Jean Paul Berkowitz Cancer Brother Charles Berkowitz Cancer Mother's Brother Jona Silverio Cancer Father's Brother Stephen Berkowitz Arthritis Maternal Grandmother Zaira Silverio Cancer Maternal Grandfather Rafael Silverio Cancer Paternal Grandmother Renetta Berkowitz Cancer Paternal Grandfather Cyrus Berkowitz Objective Vitals: 03/19/23 1031 BP: (!) 140/80 BP Location: Left arm Patient Position: Sitting BP Cuff Size: Adult Pulse: 73 SpO2: 98% Weight: 270 lb (122 kg) Height: 5' 5 (1.651 m) Physical Exam Constitutional: General: She is not in acute distress. Appearance: She is obese. HENT: Head: Normocephalic. Eyes: Pupils: Pupils are equal, round, and reactive to light. Neck: Vascular: No carotid bruit. Comments: No JVD Cardiovascular: Rate and Rhythm: Normal rate and regular rhythm. Pulses: Normal pulses. Heart sounds: Normal heart sounds. No murmur heard. No friction rub. No gallop. Pulmonary: Effort: Pulmonary effort is normal. No respiratory distress. Breath sounds: Normal breath sounds. No wheezing, rhonchi or rales. Musculoskeletal: General: Normal range of motion. Cervical back: Normal range of motion. Right lower leg: No edema. Left lower leg: No edema. Skin: General: Skin is warm. Capillary Refill: Capillary refill takes less than 2 seconds. Neurological: Mental Status: She is alert and oriented to person, place, and time. Data Reviewed and Summarized Review of tests/labs done/ordered within my specialty: EKG in office: Normal Marii Gavin MD documented in this encounter [facility] 03-11-2023 History of Presen t illness Narrative [facility] SURGICAL WEIGHT LOSS MANAGEMENT PROGRAM SUPERVISED DIET AND EXERCISE ROOMING: INITIAL VISIT Patient: Myra Colunga Date of : 1970 Service Date: 03/11/2023 Patient is here today to initiate physician-supervised diet and exercise as required by their insurance company prior to approval for weight loss surgery. This patient is spouse for the evaluation today This is visit 1 of 0 required visits. Weight Metrics: (From Surgical Wet Loss Management) Today's Vital Signs: Non-Surgical Initial Eval Consult Date: 03/11/23 Initial Height: 5' 5.5 (166.4 cm) Initial Weight: 284 lb 9.6 oz (129 kg) [place] Body Weight: 134 lb (60.8 kg) Initial BMI: 46.63 Initial Body Fat %: 55.96 EBW: 150 lb (From NonSurgical Weight Loss Tracker) Falls Risk Assessment Patient does take medications which affect BP or mental status Patient does not have newly prescribed or changed dosage of medications within past 30 days which affect BP or mental status Patient has not fallen in the past 2 months Patient uses the following ambulatory assistive devices: none Patient states the presence of the following traits which increases risk of fall: none Patient is noton home O2 Completed by: Devi Gagnon MA [facility] SURGICAL WEIGHT LOSS MANAGEMENT PROGRAM PHYSICIAN SUPERVISED DIET AND EXERCISE SURGICAL PREPARATORY REGIMEN PROGRESS NOTE INITIAL EVALUATION Patient: Myra Colunga Service Date: 03/11/2023 Date of : 1970 Navigation Plan: Patient History/Assessment Summary: The patient is a pleasant 53 y.o. year old female, who stands Height: 5' 5.5 (166.4 cm) tall with a weight of Weight: 284 lb 9.6 oz (129 kg) pounds, resulting in a BMI of Body mass index is 46.64 kg/m . kg/m2. They have been overweight for years, have tried and failed multiple previous diet attempts, and is now in the process of undergoing evaluation for surgical treatment of their severe obesity and DM, HTN, and BEATRICE with or without CPAP. They are here today to initiate monthly physician supervised diet and exercise as part of their surgical preparatory regimen. The patient does not have any acute complaints. History: Past Medical History: Diagnosis Date Arthritis Diabetes (HCC) Hypertension Joint pain Morbid obesity, unspecified obesity type (HCC) 01/15/2023 BEATRICE (obstructive sleep apnea) Past Surgical History: Procedure Laterality Date SECTION, LOW TRANSVERSE 2000 and 2001 pfannenstiel DILATION AND CURETTAGE OF UTERUS 2008 ENDOMETRIAL ABLATION 2012 EYE SURGERY 2006 FOOT SURGERY 2006 plantar fascitis FOOT SURGERY 2006 correction of two claw toes LAP,CHOLECYSTECTOMY (HISTORICAL) 2003 MENISCECTOMY 2018 OTHER SURGICAL HISTORY N/A 1995 LEEP SURGERY TUBAL LIGATION 2001 concurrent to last UPPER GI ENDOSCOPY,EXAM (HISTORICAL) 03/02/2023 Family History Problem Relation Name Age of Onset Arthritis Mother Tiesha Berkowitz Arthritis Father Dimitri Berkowitz Cancer Father Dimitri Berkowitz Diabetes Father Dimitri Berkowitz Cancer Maternal Grandfather Rafael Silverio Arthritis Maternal Grandmother Zaira Silverio Cancer Paternal Grandfather Cyrus Berkowitz Cancer Paternal Grandmother Renetta Berkowitz Arthritis Brother Jean Paul Berkowitz Cancer Brother Charles Berkowitz Cancer Mother's Brother Jona Silverio Cancer Father's Brother Stephen Berkowitz Social History Tobacco Use Smoking status: Never Smokeless tobacco: Never Substance Use Topics Alcohol use: Not Currently Current Meds Patient's Medications New Prescriptions No medications on file Previous Medications BASAGLAR KWIKPEN 100 UNIT/ML PEN CHOLECALCIFEROL (VITAMIN D-3) 100 MCG (4000 UT) TABLET Take 4,000 Units by mouth daily. CYANOCOBALAMIN (VITAMIN B-12) [address] 1 Dose under the tongue daily. GLYBURIDE (DIABETA) 5 MG TABLET LISINOPRIL 10 MG TABLET LORATADINE 10 MG CAPSULE RESPIRATORY THERAPY SUPPLIES (CARETOUCH CPAP & BIPAP HOSE) MISC TRULICITY 1.5 MG/0.5ML SOLUTION PEN-INJECTOR INJECT 1 PEN-INJECTOR SUBCUTANEOUSLY ONCE A WEEK Modified Medications No medications on file Discontinued Medications No medications on file This patient's excess weight is causing the following co-morbid conditions at this time:DM, HTN, and BEATRICE with or without CPAP Initial Diet & Exercise/SPR Visit Weight Metrics: Date of Initial Diet & Exercise Visit: Consult Date: 03/11/23 Initial Weight: Initial Weight: 284 lb 9.6 oz (129 kg) Initial BMI: Initial BMI: 46.63 [place] Body Weight: [place] Body Weight: 134 lb (60.8 kg) Excess Body Weight: EBW: 150 lb Physical Examination: BP 129/83 Pulse 66 Ht 5' 5.5 (1.664 m) Wt 284 lb 9.6 oz (129 kg) BMI 46.64 kg/m General: Alert and oriented x 4, obese, no distress. normocephalic and atraumatic Cardiac: Regular rate and rhythm without evidence of murmur Respiratory: Clear to auscultation bilaterally; No evidence of respiratory distress Musculoskeletal: No edema of extremities, ambulatory without assistance Neurological: Intact x 4 extremities, nonfocal neurologic exam, no focal deficits noted. Current Diet Dinner: 6:00pm Breakfast 9:00am: 2 eggs, brown sausage, 1 cup coffee (sugar free sweetener) No eating after dinner Flavored water Reviewed PAST DIET HISTORY FORM and CURRENT DIET HISTORY FORM with patient (located in [employer]) I reviewed all of the patient's medications and diagnoses listed in Epic. Eats approximately 4 times per day. Plan: --Obesity Class III, Elevated BMI Diet and exercise (DE) Following with bariatric surgery Advised patient that they must adhere to regular monthly visits to meet the requirements of the insurance company. Additionally, they must demonstrate meal plan adoption to show readiness for the changes that will be required following surgery. Diet recommendations provided to patient verbally and in the form of handouts; they understood and agreed with plan. -Discussed cessation of the following prior to and after surgery: carbonation, caffeine, NSAIDs, alcohol, tobacco. Patient understood and agreed. --HTN: stable, management per outpatient providers, Discussed blood pressure could decrease with weight loss, potentially resulting in dizziness/lightheadedness (which can result in fall/injury). Patient understood. Adequate hydration and follow up with PCP for abnormal blood pressures and possible medication adjustments discussed - patient understood and agreed. --Diabetes, management per outpatient providers, discussed blood glucose could decrease with weight loss. Patient understood. They are aware of symptoms of hypoglycemia and treatment of hypoglycemia. Patient will follow up with their outpatient providers for diabetes management and possible adjustment of medications. Trulicity, insulin, glyburide --Sleep apnea: following with pulmonology Plan of care discussed with patient and , all questions answered, they agree with plan of care. Medical decision making: Patient's medical conditions place them at a moderate risk of complications, morbidity, and mortality. Patient to return for follow up in one month. No orders of the defined types were placed in this encounter. Nils Pedraza MD 03/11/2023 4:08 PM documented in this encounter [facility] 03-11-2023 History of Presen t illness Narrative [facility] [address] [address] Dept: [phone] Dept Visit type: Reason for Visit: New Patient History of Present Illness: primary symptoms Pertinent negatives include no chest pain, congestion, coughing, fatigue, fever or headaches. Myra Colunga is a 53 y.o. female patient with significant PMH of Obesity, HTN, BEATRICE, and DM. Patient was referred to pulmonology for bariatric surgical clearance. Denies any history of respiratory diseases or tobacco abuses. Denies coughing, wheezing, chest tightness, SOB, or chest pain. [place] Score 2 Patient goes to bed at 10 and gets up at 6. She quickly falls asleep. Describes sleep as restful. She does wake up refreshed. She does not wake up with AM SANTORO. Denies daytime hypersomnolence. Denies leg movement, nocturia, or parasomnia. She complete sleep study 2019 revealing moderate sleep apnea (AHI 22.7) and no hypoxia. Patient reports losing 25 lbs since that time. She wears CPAP and it is not effective. STOPBANG Questionnaire: SNORING: Do you snore loudly (loud enough to be heard through closed doors or your bed-partner elbows you for snoring at night)? no TIRED: Do you often feel tired, fatigued or sleepy during the daytime (such as falling asleep during driving or talking to someone)? no OBSERVED: Has anyone observed you stop breathing or choking/gasping during your sleep? no PRESSURE: Do you have or are you being treated for high blood pressure? yes BODY MASS INDEX >35: Body mass index is 46.76 kg/m . yes AGE >50: 53 y.o. yes NECK SIZE LARGE: (measured around the Vishal's apple) For male, is your shirt collar 17 inches or larger? For female, is your shirt collar 16 inches or larger? no GENDER: Male no SCORE: 3-4 intermediate risk Score 1 point for each YES answer: Past Medical History: Past Medical History: Diagnosis Date Arthritis Diabetes (HCC) Hypertension Joint pain Morbid obesity, unspecified obesity type (HCC) 01/15/2023 BEATRICE (obstructive sleep apnea) Social History: Social History Socioeconomic History Marital status: Tobacco Use Smoking status: Never Smokeless tobacco: Never Substance and Sexual Activity Alcohol use: Not Currently Drug use: Never Sexual activity: Yes Partners: Male control/protection: Female Sterilization Family History: Family History Problem Relation Name Age of Onset Arthritis Mother Tiesha Berkowitz Arthritis Father Dimitri Berkowitz Cancer Father Dimitri Berkowitz Diabetes Father Dimitri Berkowitz Cancer Maternal Grandfather Rafael Silverio Arthritis Maternal Grandmother Zaira Silverio Cancer Paternal Grandfather Cyrus Berkowitz Cancer Paternal Grandmother Renetta Berkowitz Arthritis Brother Jean Paul Berkowitz Cancer Brother Charles Berkowitz Cancer Mother's Brother Jona Silverio Cancer Father's Brother Stephen Berkowitz ROS: Review of Systems Constitutional: Negative for activity change, fatigue and fever. HENT: Negative for congestion, postnasal drip and rhinorrhea. Respiratory: Negative for cough, chest tightness, shortness of breath and wheezing. Cardiovascular: Negative for chest pain, palpitations and leg swelling. Neurological: Negative for dizziness and headaches. Medications: @MEDCMED@ Allergies: Allergies Allergen Reactions Codeine Nausea And Vomiting Other reaction(s): Vomiting Metformin Hcl GI upset Vital Signs: BP 124/82 (BP Location: Left arm, Patient Position: Sitting, BP Cuff Size: Adult) Pulse 77 Resp 14 Ht 5' 5 (1.651 m) Wt 281 lb (127 kg) SpO2 96% Comment: RA BMI 46.76 kg/m Physical Exam: Physical Exam Vitals reviewed. Constitutional: General: She is not in acute distress. Appearance: Normal appearance. She is normal weight. HENT: Mouth/Throat: Pharynx: No oropharyngeal exudate or posterior oropharyngeal erythema. Eyes: Extraocular Movements: Extraocular movements intact. Cardiovascular: Rate and Rhythm: Regular rhythm. Heart sounds: No murmur heard. No friction rub. No gallop. Pulmonary: Effort: Pulmonary effort is normal. No accessory muscle usage, prolonged expiration or respiratory distress. Breath sounds: No stridor, decreased air movement or transmitted upper airway sounds. No decreased breath sounds, wheezing, rhonchi or rales. Comments: Lungs are clear and moving adequate air. Chest: Chest wall: No tenderness. Neurological: Mental Status: She is alert. Assessment and Plan: Diagnosis Plan 1. Pre-operative clearance Patient is at intermediate risk for pulmonary post op complications. 2. BEATRICE (obstructive sleep apnea) Patient completed sleep study 2019 revealing moderate BEATRICE (AHI 22.7) with no hypoxia. She uses CPAP and it is not effective. She has lost 25 lbs since test was completed. Moderate BEATRICE will most likely resolve with bariatric surgery. 3. Morbid obesity with BMI of 45.0-49.9, adult (HCC) Established with bariatrics. Follow-up: Follow up if symptoms worsen or fail to improve. documented in this encounter [facility] 03-02-2023 Note Patient: Myra Colunga Procedure Summary Date: 03/02/23 Room / Location: [facility] / [facility] Anesthesia Start: 810 Anesthesia Stop: 828 Procedure: EGD WITH BIOPSY Diagnosis: Functional dyspepsia (Functional dyspepsia [K30]) Providers: Javon Nickerson MD Responsible Provider: Giancarlo Hampton MD Anesthesia Type: TIVA ASA Status: 3 Anesthesia Type: TIVA Vitals Value Taken Time BP 102/75 03/02/23 0832 Temp 36.1 ?C (97 ?F) 03/02/23 0832 Pulse 83 03/02/23 0832 Resp 17 03/02/23 0832 SpO2 100 % 03/02/23 0832 Anesthesia Post Evaluation Patient location during evaluation: PACU Patient participation: complete - patient participated Level of consciousness: awake and alert Pain management: satisfactory to patient Airway patency: patent Dental Injury: no Cardiovascular status: acceptable, blood pressure returned to baseline and hemodynamically stable Respiratory status: acceptable and spontaneous ventilation Hydration status: euvolemic Nausea/Vomiting: controlled No notable events documented. Patient can be discharged once all PACU criteria has been met. [facility] 03-02-2023 Note Patient: Myra Colunga Procedure Summary Date: 03/02/23 Room / Location: [facility] Anesthesia Start: 810 Anesthesia Stop: 828 Procedure: EGD WITH BIOPSY Diagnosis: Functional dyspepsia (Functional dyspepsia [K30]) Providers: Javon Nickerson MD Responsible Provider: Giancarlo Hampton MD Anesthesia Type: TIVA ASA Status: 3 Anesthesia Type: TIVA Vitals Value Taken Time BP 102/75 03/02/23 0832 Temp 36.1 ?C (97 ?F) 03/02/23 0832 Pulse 83 03/02/23 0832 Resp 17 03/02/23 0832 SpO2 100 % 03/02/23 0832 Anesthesia Post Evaluation Patient location during evaluation: PACU Patient participation: complete - patient participated Level of consciousness: awake and alert Pain management: satisfactory to patient Multimodal analgesia pain management approach Airway patency: patent Two or more strategies used to mitigate risk of obstructive sleep apnea Cardiovascular status: acceptable and hemodynamically stable Respiratory status: acceptable Hydration status: acceptable No notable events documented. MIPS #430 PONV Patient did not receive an inhalational anesthetic (XX430) MIPS # 424 Perioperative Temperature Management Anesthesia time was less than 60 minutes (4256F) MIPS #477 Multimodal Pain Management Not emergent case Patient was not administered multimodal pain management (G2149) Patient reports no pain in PACU (G2149) MIPS #404 Anesthesiology Smoking Abstinence The patient is not a current smoker (e.g. cigarette, cigar, pipe, e-cigarette/vaping/marijuana) If no stop here (G9644) I completed my handoff to the receiving clinician during which we: 1. Identified the patient 2. Identified the responsible provider 3. Reviewed the pertinent medical history 4. Discussed the surgical course 5. Reviewed intra-op anesthesia management and issues during anesthesia 6. Set expectations for post-procedure period 7. Allowed opportunity for questions and acknowledgement of understanding. [facility] 03-02-2023 Note [facility]oscopy [facility] Patient Name: Myra Colunga Procedure Date: 03/02/2023 7:43 AM Gender: Female Date of : 1970 Age: 53 Admit Type: Outpatient Note Status: Finalized Endoscopist: Javon Nickerson MD, [id number] Procedure: Upper GI endoscopy Indications: Suspected gastro-esophageal reflux disease, Preoperative assessment for bariatric surgery to treat morbid obesity, Morbid Obesity with a BMI of 46 kg/m2 Findings: Mild inflammation was found in the gastric antrum. This was biopsied with a cold forceps for Helicobacter pylori testing. Verification of patient identification for the specimen was done. A small hiatal hernia was present. The gastroesophageal junction was normal. A few 3 mm pedunculated polyps with no bleeding and no stigmata of recent bleeding were found in the gastric body. The polyp was removed with a cold biopsy forceps. Resection and retrieval were complete. Verification of patient identification for the specimen was done. Estimated blood loss was minimal. Impression: - Gastritis. Biopsied. - Small hiatal hernia. - Normal gastroesophageal junction. - A few gastric polyps. Resected and retrieved. Recommendation: - Patient has a contact number available for emergencies. The signs and symptoms of potential delayed complications were discussed with the patient. Return to normal activities tomorrow. Written discharge instructions were provided to the patient. - Resume previous diet. - Continue present medications. - Await pathology results. Referring MD: Javon Nickerson, Javon Nickerson MD, Javon Ramos Medicines: Monitored Anesthesia Care Procedure: After obtaining informed consent, the endoscope was passed under direct vision. Throughout the procedure, the patient's blood pressure, pulse, and oxygen saturations were monitored continuously. The Endoscope was introduced through the mouth, and advanced to the second part of duodenum. The upper GI endoscopy was accomplished without difficulty. The patient tolerated the procedure well. Complications: No immediate complications. Procedure Code(s): --- Professional --- 28675, Esophagogastroduodenoscopy, flexible, transoral; with biopsy, single or multiple --- Technical --- 89270, Esophagogastroduodenoscopy, flexible, transoral; with biopsy, single or multiple Diagnosis Code(s): --- Professional --- K29.70, Gastritis, unspecified, without bleeding K44.9, Diaphragmatic hernia without obstruction or gangrene Z01.818, Encounter for other preprocedural examination E66.01, Morbid (severe) obesity due to excess calories --- Technical --- K29.70, Gastritis, unspecified, without bleeding K44.9, Diaphragmatic hernia without obstruction or gangrene Z01.818, Encounter for other preprocedural examination E66.01, Morbid (severe) obesity due to excess calories CPT copyright 2021 [employer]. All rights reserved. The codes documented in this report are preliminary and upon medical records coder review may be revised to meet current compliance requirements. Attending Participation: I personally performed the entire procedure. Javon Nickerson MD 03/02/2023 8:35:38 AM This report has been signed electronically. Number of Addenda: 0 Note Initiated On: 03/02/2023 7:43 AM [facility] 03-02-2023 Note Patient: Myra Colunga Procedure Information Date/Time: 03/02/23 0830 Procedure: EGD WITH BIOPSY - 30 MINUTES Location: [address] ENDO SEC 4 / [facility] Providers: Javon Nickerson MD Relevant Problems Anesthesia (+) BEATRICE (obstructive sleep apnea) Cardio (+) Hypertension Pulmonary (+) BEATRICE (obstructive sleep apnea) Past Medical History: Past Medical History: No date: Arthritis No date: Diabetes (HCC) No date: Hypertension No date: Joint pain 01/15/2023: Morbid obesity, unspecified obesity type (HCC) No date: BEATRICE (obstructive sleep apnea) Past Surgical History: Past Surgical History: 2000 and 2001: SECTION, LOW TRANSVERSE Comment: [email or web address] 2008: DILATION AND CURETTAGE OF UTERUS 2012: ENDOMETRIAL ABLATION 2006: EYE SURGERY 2006: FOOT SURGERY Comment: plantar fascitis 2006: FOOT SURGERY Comment: correction of two claw toes 2004: LAP,CHOLECYSTECTOMY (HISTORICAL) 2018: MENISCECTOMY 1996: OTHER SURGICAL HISTORY; N/A Comment: LEEP SURGERY 2002: TUBAL LIGATION Comment: concurrent to last Social History: TOBACCO: reports that she has never smoked. She has never used smokeless tobacco. ETOH: reports that she does not currently use alcohol. Social History Substance and Sexual Activity Drug Use Never Family History: Family History Problem Relation Name Age of Onset ? Arthritis Mother Tiesha Berkowitz ? Arthritis Father Dimitri Berkowitz ? Cancer Father Dimitri Berkowitz ? Diabetes Father Dimitri Berkowitz ? Cancer Maternal Grandfather Rafael Silverio ? Arthritis Maternal Grandmother Zaira Silverio ? Cancer Paternal Grandfather Cyrus Berkowitz ? Cancer Paternal Grandmother Renetta Berkowitz ? Arthritis Brother Jean Paul Berkowitz ? Cancer Brother Charles Berkowitz ? Cancer Mother's Brother Jona Silverio ? Cancer Father's Brother Stephen Berkowitz Screening: unknown Clinical information reviewed: Physical Exam Airway Mallampati: III TM distance: >3 FB Neck ROM: full Mouth Open: normal Cardiovascular Dental dentition normal Pulmonary Abdominal Anesthesia Plan patient is NPO appropriate Any family history or previous problems with anesthesia no ASA 3 TIVA Any family history or previous problems with anesthesia no The patient is not a current smoker. BEATRICE Screening Labs: Lab Results Component Value Date WBC 8.6 02/05/2023 HGB 13.1 02/05/2023 HCT 40.7 02/05/2023 MCV 83.2 02/05/2023 PLT 334 02/05/2023 Lab Results Component Value Date NA 138 02/05/2023 K 4.7 02/05/2023 CL 102 02/05/2023 CO2 25 02/05/2023 BUN 13 02/05/2023 CREATININE 0.69 02/05/2023 GLUCOSE 126 (H) 02/05/2023 CALCIUM 9.6 02/05/2023 PROT 8.1 02/05/2023 ALKPHOS 95 02/05/2023 AST 37 02/05/2023 ALT 24 02/05/2023 EGFR >90.0 02/05/2023 No echocardiogram results found for the past 14 days No results found for this or any previous visit. [facility] 03-02-2023 Note Formatting of this n ote might be different from the original. [facility] Name: Myra Colunga Procedure Date: 03/02/2023 7:43 AM Gender: Female Date of : 1970 Age: 53 Admit Type: Outpatient Note Status: Finalized Endoscopist: Javon Nickerson MD, [id number] Procedure: Upper GI endoscopy Indications: Suspected gastro-esophageal reflux disease, Preoperative assessment for bariatric surgery to treat morbid obesity, Morbid Obesity with a BMI of 46 kg/m2 Findings: Mild inflammation was found in the gastric antrum. This was biopsied with a cold forceps for Helicobacter pylori testing. Verification of patient identification for the specimen was done. A small hiatal hernia was present. The gastroesophageal junction was normal. A few 3 mm pedunculated polyps with no bleeding and no stigmata of recent bleeding were found in the gastric body. The polyp was removed with a cold biopsy forceps. Resection and retrieval were complete. Verification of patient identification for the specimen was done. Estimated blood loss was minimal. Impression: - Gastritis. Biopsied. - Small hiatal hernia. - Normal gastroesophageal junction. - A few gastric polyps. Resected and retrieved. Recommendation: - Patient has a contact number available for emergencies. The signs and symptoms of potential delayed complications were discussed with the patient. Return to normal activities tomorrow. Written discharge instructions were provided to the patient. - Resume previous diet. - Continue present medications. - Await pathology results. Referring MD: Javon Nickerson, Javon Nickerson MD, Javon Ramos Medicines: Monitored Anesthesia Care Procedure: After obtaining informed consent, the endoscope was passed under direct vision. Throughout the procedure, the patient's blood pressure, pulse, and oxygen saturations were monitored continuously. The Endoscope was introduced through the mouth, and advanced to the second part of duodenum. The upper GI endoscopy was accomplished without difficulty. The patient tolerated the procedure well. Complications: No immediate complications. Procedure Code(s): --- Professional --- 09684, Esophagogastroduodenoscopy, flexible, transoral; with biopsy, single or multiple --- Technical --- 11336, Esophagogastroduodenoscopy, flexible, transoral; with biopsy, single or multiple Diagnosis Code(s): --- Professional --- K29.70, Gastritis, unspecified, without bleeding K44.9, Diaphragmatic hernia without obstruction or gangrene Z01.818, Encounter for other preprocedural examination E66.01, Morbid (severe) obesity due to excess calories --- Technical --- K29.70, Gastritis, unspecified, without bleeding K44.9, Diaphragmatic hernia without obstruction or gangrene Z01.818, Encounter for other preprocedural examination E66.01, Morbid (severe) obesity due to excess calories CPT copyright 2021 [employer]. All rights reserved. The codes documented in this report are preliminary and upon medical records coder review may be revised to meet current compliance requirements. Attending Participation: I personally performed the entire procedure. Javon Nickerson MD 03/02/2023 8:35:38 AM This report has been signed electronically. Number of Addenda: 0 Note Initiated On: 03/02/2023 7:43 AM [facility] 03-02-2023 Note Formatting of this n ote might be different from the original. [facility] Name: Myra Colunga Procedure Date: 03/02/2023 7:43 AM Gender: Female Date of : 1970 Age: 53 Admit Type: Outpatient Note Status: Finalized Endoscopist: Javon Nickerson MD, [id number] Procedure: Upper GI endoscopy Indications: Suspected gastro-esophageal reflux disease, Preoperative assessment for bariatric surgery to treat morbid obesity, Morbid Obesity with a BMI of 46 kg/m2 Findings: Mild inflammation was found in the gastric antrum. This was biopsied with a cold forceps for Helicobacter pylori testing. Verification of patient identification for the specimen was done. A small hiatal hernia was present. The gastroesophageal junction was normal. A few 3 mm pedunculated polyps with no bleeding and no stigmata of recent bleeding were found in the gastric body. The polyp was removed with a cold biopsy forceps. Resection and retrieval were complete. Verification of patient identification for the specimen was done. Estimated blood loss was minimal. Impression: - Gastritis. Biopsied. - Small hiatal hernia. - Normal gastroesophageal junction. - A few gastric polyps. Resected and retrieved. Recommendation: - Patient has a contact number available for emergencies. The signs and symptoms of potential delayed complications were discussed with the patient. Return to normal activities tomorrow. Written discharge instructions were provided to the patient. - Resume previous diet. - Continue present medications. - Await pathology results. Referring MD: Javon Nickerosn, Javon Nickerson MD, Javon Ramos Medicines: Monitored Anesthesia Care Procedure: After obtaining informed consent, the endoscope was passed under direct vision. Throughout the procedure, the patient's blood pressure, pulse, and oxygen saturations were monitored continuously. The Endoscope was introduced through the mouth, and advanced to the second part of duodenum. The upper GI endoscopy was accomplished without difficulty. The patient tolerated the procedure well. Complications: No immediate complications. Procedure Code(s): --- Professional --- 27907, Esophagogastroduodenoscopy, flexible, transoral; with biopsy, single or multiple --- Technical --- 02586, Esophagogastroduodenoscopy, flexible, transoral; with biopsy, single or multiple Diagnosis Code(s): --- Professional --- K29.70, Gastritis, unspecified, without bleeding K44.9, Diaphragmatic hernia without obstruction or gangrene Z01.818, Encounter for other preprocedural examination E66.01, Morbid (severe) obesity due to excess calories --- Technical --- K29.70, Gastritis, unspecified, without bleeding K44.9, Diaphragmatic hernia without obstruction or gangrene Z01.818, Encounter for other preprocedural examination E66.01, Morbid (severe) obesity due to excess calories CPT copyright 2021 [employer]. All rights reserved. The codes documented in this report are preliminary and upon medical records coder review may be revised to meet current compliance requirements. Attending Participation: I personally performed the entire procedure. Javon Nickerson MD 03/02/2023 8:35:38 AM This report has been signed electronically. Number of Addenda: 0 Note Initiated On: 03/02/2023 7:43 AM [facility] 03-02-2023 Miscellaneous Notes [facility] Patient Name: Myra Colunga Procedure Date: 03/02/2023 7:43 AM Gender: Female Date of : 1970 Age: 53 Admit Type: Outpatient Note Status: Finalized Endoscopist: Javon Nickerson MD, [id number] Procedure: Upper GI endoscopy Indications: Suspected gastro-esophageal reflux disease, Preoperative assessment for bariatric surgery to treat morbid obesity, Morbid Obesity with a BMI of 46 kg/m2 Findings: Mild inflammation was found in the gastric antrum. This was biopsied with a cold forceps for Helicobacter pylori testing. Verification of patient identification for the specimen was done. A small hiatal hernia was present. The gastroesophageal junction was normal. A few 3 mm pedunculated polyps with no bleeding and no stigmata of recent bleeding were found in the gastric body. The polyp was removed with a cold biopsy forceps. Resection and retrieval were complete. Verification of patient identification for the specimen was done. Estimated blood loss was minimal. Impression: - Gastritis. Biopsied. - Small hiatal hernia. - Normal gastroesophageal junction. - A few gastric polyps. Resected and retrieved. Recommendation: - Patient has a contact number available for emergencies. The signs and symptoms of potential delayed complications were discussed with the patient. Return to normal activities tomorrow. Written discharge instructions were provided to the patient. - Resume previous diet. - Continue present medications. - Await pathology results. Referring MD: Javon Nickerson, Javon Nickerson MD, Javon Ramos Medicines: Monitored Anesthesia Care Procedure: After obtaining informed consent, the endoscope was passed under direct vision. Throughout the procedure, the patient's blood pressure, pulse, and oxygen saturations were monitored continuously. The Endoscope was introduced through the mouth, and advanced to the second part of duodenum. The upper GI endoscopy was accomplished without difficulty. The patient tolerated the procedure well. Complications: No immediate complications. Procedure Code(s): --- Professional --- 45535, Esophagogastroduodenoscopy, flexible, transoral; with biopsy, single or multiple --- Technical --- 32419, Esophagogastroduodenoscopy, flexible, transoral; with biopsy, single or multiple Diagnosis Code(s): --- Professional --- K29.70, Gastritis, unspecified, without bleeding K44.9, Diaphragmatic hernia without obstruction or gangrene Z01.818, Encounter for other preprocedural examination E66.01, Morbid (severe) obesity due to excess calories --- Technical --- K29.70, Gastritis, unspecified, without bleeding K44.9, Diaphragmatic hernia without obstruction or gangrene Z01.818, Encounter for other preprocedural examination E66.01, Morbid (severe) obesity due to excess calories CPT copyright 2021 [employer]. All rights reserved. The codes documented in this report are preliminary and upon medical records coder review may be revised to meet current compliance requirements. Attending Participation: I personally performed the entire procedure. Javon Nickerson MD 03/02/2023 8:35:38 AM This report has been signed electronically. Number of Addenda: 0 Note Initiated On: 03/02/2023 7:43 AM documented in this encounter [facility] 03-01-[address] [facility] - Surgery [facility] PATIENT NAME: Myra Colunga DATE OF : 1970 ADMISSION DATE: 03/02/2023 7:13 AM TODAY'S DATE: 03/02/2023 HISTORY OF PRESENT ILLNESS: The patient is a 53 y.o. female who presents with morbid obesity and a Body mass index is 46.59 kg/m?.. She is undergoing upper gastrointestinal endoscopy with biopsies for Helicobacter pylori. I thoroughly reviewed the patient's medical history, family history, social history and review of systems with the patient today in the office. Please see medical record for pertinent positives. Past Medical History: Past Medical History: Diagnosis Date Arthritis Diabetes (HCC) Hypertension Joint pain Morbid obesity, unspecified obesity type (HCC) 01/15/2023 BEATRICE (obstructive sleep apnea) Past Surgical History: Past Surgical History: Procedure Laterality Date SECTION, LOW TRANSVERSE 2000 and 2001 pfannenstiel DILATION AND CURETTAGE OF UTERUS 2008 ENDOMETRIAL ABLATION 2012 EYE SURGERY 2006 FOOT SURGERY 2006 plantar fascitis FOOT SURGERY 2006 correction of two claw toes LAP,CHOLECYSTECTOMY (HISTORICAL) 2004 MENISCECTOMY 2018 OTHER SURGICAL HISTORY N/A 1995 LEEP SURGERY TUBAL LIGATION 2001 concurrent to last Current Medications: Current Facility-Administered Medications Medication Dose Route Frequency Provider Last Rate Last Admin sodium chloride 0.9 % infusion 50 mL/hr IntraVENous Continuous ANGEL Najera 50 mL/hr at 03/02/23 0755 Continued by Anesthesia at 03/02/23 0755 Prior to Admission medications Medication Sig Start Date End Date Taking? Authorizing Provider Ellis Moeller 100 UNIT/ML pen 01/20/23 Historical Provider, cholecalciferol (Vitamin D-3) 100 MCG (4000 UT) tablet Take 4,000 Units by mouth daily. 02/08/23 Historical Provider, Cyanocobalamin (Vitamin B-12) [address] 1 Dose under the tongue daily. 02/08/23 Historical Provider, glyBURIDE (Diabeta) 5 MG tablet 11/27/22 Historical Provider, lisinopril 10 MG tablet 11/27/22 Historical Provider, Loratadine 10 MG capsule Historical Provider, Respiratory Therapy Supplies (CareTouch CPAP & BIPAP Hose) [facility] [place], Trulicity 1.5 MG/0.5ML solution pen-injector INJECT 1 PEN-INJECTOR SUBCUTANEOUSLY ONCE A WEEK 01/14/23 Historical Provider, Allergies: Allergies Allergen Reactions Codeine Nausea And Vomiting Other reaction(s): Vomiting Metformin Hcl GI upset Social History: Social History Socioeconomic History Marital status: Spouse name: Not on file Number of children: Not on file Years of education: Not on file Highest education level: Not on file Occupational History Not on file Tobacco Use Smoking status: Never Smokeless tobacco: Never Substance and Sexual Activity Alcohol use: Not Currently Drug use: Never Sexual activity: Yes Partners: Male control/protection: Female Sterilization Other Topics Concern Not on file Social History Narrative Not on file Social Determinants of Health Financial Resource Strain: Not on file Food Insecurity: Not on file Transportation Needs: Not on file Physical Activity: Not on file Stress: Not on file Social Connections: Not on file Intimate Partner Violence: Not on file Housing Stability: Not on file Family History: Family History Problem Relation Name Age of Onset Arthritis Mother Tiesha Berkowitz Arthritis Father Dimitri Berkowitz Cancer Father Dimitri Berkowitz Diabetes Father Dimitri Berkowitz Cancer Maternal Grandfather Rafael Silverio Arthritis Maternal Grandmother Zaira Silverio Cancer Paternal Grandfather Cyrus Berkowitz Cancer Paternal Grandmother Renetta Berkowitz Arthritis Brother Jean Paul Berkowitz Cancer Brother Charles Berkowitz Cancer Mother's Brother Jona Silverio Cancer Father's Brother Stephen Berkowitz REVIEW OF SYSTEMS: CONSTITUTIONAL: Negative for fatigue, and unexpected weight change RESPIRATORY: Negative for cough, SOB, and wheezing CARDIOVASCULAR: Negative for chest pains and palpatations GASTROINTESTINAL: Negative for abdominal bloating, constipation, diarrhea. Positive for gastroesophageal reflux disease HEMATOLOGIC/LYMPHATIC: Negative for adenopathy. Does not bruise/bleed easily. NEUROLOGICAL: Negative for seizures and syncope * All other ROS reviewed see HPI for pertinent positives and negatives. PHYSICAL EXAM: VITALS: BP 118/73 Pulse 68 Temp 36.2 ?C (97.2 ?F) (Temporal) Resp 16 Ht 5' 5 (1.651 m) Wt 280 lb (127 kg) SpO2 99% BMI 46.59 kg/m? GENERAL: Oriented to person, place, and time. Appears well nourished. No distress ENT: Normocepalic,atraumatic, without obvious abnormality NECK: supple, symmetrical, trachea midline LUNGS: Resp effort easy and unlabored, breath sounds normal CARDIOVASCULAR: RRR, No murmur ABDOMEN: Soft, non-tender, no open wounds. MUSCULOSKELETAL: Normal range of motion, ambulatory (more content not included)... [facility] 03-01-2023 History and physical note Images from the original note were not included. [facility] Group - Surgery [facility] Physicians Surgery PATIENT NAME: Myra Colunga DATE OF : 1970 ADMISSION DATE: 03/02/2023 7:13 AM TODAY'S DATE: 03/02/2023 HISTORY OF PRESENT ILLNESS: The patient is a 53 y.o. female who presents with morbid obesity and a Body mass index is 46.59 kg/m .. She is undergoing upper gastrointestinal endoscopy with biopsies for Helicobacter pylori. I thoroughly reviewed the patient's medical history, family history, social history and review of systems with the patient today in the office. Please see medical record for pertinent positives. Past Medical History: Past Medical History: Diagnosis Date Arthritis Diabetes (HCC) Hypertension Joint pain Morbid obesity, unspecified obesity type (HCC) 01/15/2023 BEATRICE (obstructive sleep apnea) Past Surgical History: Past Surgical History: Procedure Laterality Date SECTION, LOW TRANSVERSE 2000 and 2001 pfannenstiel DILATION AND CURETTAGE OF UTERUS 2008 ENDOMETRIAL ABLATION 2012 EYE SURGERY 2006 FOOT SURGERY 2006 plantar fascitis FOOT SURGERY 2006 correction of two claw toes LAP,CHOLECYSTECTOMY (HISTORICAL) 2003 MENISCECTOMY 2018 OTHER SURGICAL HISTORY N/A 1995 LEEP SURGERY TUBAL LIGATION 2001 concurrent to last Current Medications: Current Facility-Administered Medications Medication Dose Route Frequency Provider Last Rate Last Admin sodium chloride 0.9 % infusion 50 mL/hr IntraVENous Continuous Lance Alemanke, PA 50 mL/hr at 03/02/23 0755 Continued by Anesthesia at 03/02/23 0755 Prior to Admission medications Medication Sig Start Date End Date Taking? Authorizing Provider Ellis Moeller 100 UNIT/ML pen 01/20/23 Historical Provider, cholecalciferol (Vitamin D-3) 100 MCG (4000 UT) tablet Take 4,000 Units by mouth daily. 02/08/23 Historical Provider, Cyanocobalamin (Vitamin B-12) [address] 1 Dose under the tongue daily. 02/08/23 Historical Provider, glyBURIDE (Diabeta) 5 MG tablet 11/27/22 Historical Provider, lisinopril 10 MG tablet 11/27/22 Historical Provider, Loratadine 10 MG capsule Historical Provider, Respiratory Therapy Supplies (CareTouch CPAP & BIPAP Hose) [facility] [place], Trjhonny 1.5 MG/0.5ML solution pen-injector INJECT 1 PEN-INJECTOR SUBCUTANEOUSLY ONCE A WEEK 01/14/23 Historical Provider, Allergies: Allergies Allergen Reactions Codeine Nausea And Vomiting Other reaction(s): Vomiting Metformin Hcl GI upset Social History: Social History Socioeconomic History Marital status: Spouse name: Not on file Number of children: Not on file Years of education: Not on file Highest education level: Not on file Occupational History Not on file Tobacco Use Smoking status: Never Smokeless tobacco: Never Substance and Sexual Activity Alcohol use: Not Currently Drug use: Never Sexual activity: Yes Partners: Male control/protection: Female Sterilization Other Topics Concern Not on file Social History Narrative Not on file Social Determinants of Health Financial Resource Strain: Not on file Food Insecurity: Not on file Transportation Needs: Not on file Physical Activity: Not on file Stress: Not on file Social Connections: Not on file Intimate Partner Violence: Not on file Housing Stability: Not on file Family History: Family History Problem Relation Name Age of Onset Arthritis Mother Tiesha Berkowitz Arthritis Father Dimitri Berkowitz Cancer Father Dimitri Berkowitz Diabetes Father Dimitri Berkowitz Cancer Maternal Grandfather Rafael Silverio Arthritis Maternal Grandmother Zaira Silverio Cancer Paternal Grandfather Cyrus Berkowitz Cancer Paternal Grandmother Renetta Berkowitz Arthritis Brother Jean Paul Berkowitz Cancer Brother Charles Berkowitz Cancer Mother's Brother Jona Silverio Cancer Father's Brother Stephen Berkowitz REVIEW OF SYSTEMS: CONSTITUTIONAL: Negative for fatigue, and unexpected weight change RESPIRATORY: Negative for cough, SOB, and wheezing CARDIOVASCULAR: Negative for chest pains and palpatations GASTROINTESTINAL: Negative for abdominal bloating, constipation, diarrhea. Positive for gastroesophageal reflux disease HEMATOLOGIC/LYMPHATIC: Negative for adenopathy. Does not bruise/bleed easily. NEUROLOGICAL: Negative for seizures and syncope * All other ROS reviewed see HPI for pertinent positives and negatives. PHYSICAL EXAM: VITALS: BP 118/73 Pulse 68 Temp 36.2 C (97.2 F) (Temporal) Resp 16 Ht 5' 5 (1.651 m) Wt 280 lb (127 kg) SpO2 99% BMI 46.59 kg/m GENERAL: Oriented to person, place, and time. Appears well nourished. No distress ENT: Normocepalic,atraumatic, without obvious abnormality NECK: supple, symmetrical, trachea midline LUNGS: Resp effort easy and unlabored, breath sounds normal CARDIOVASCULAR: RRR, No murmur ABDOMEN: Soft, non-tender, no open wounds. MUSCULOSKELETAL: Normal range of motion, ambulatory without assistance NEUROLOGIC: No focal neurologic deficits IMPRESSION/RECOMMENDATIONS: Morbid obesity with Body mass index is 46.59 kg/m .. Plan for EGD with Bx Patient counseled on risks, benefits, and alternatives of treatment plan at length. Patient states an understanding and willingness to proceed with plan. [facility] 03-01-2023 History and physical note Images from the original note were not included. [facility] Medical [facility] - Surgery [facility] Physicians Surgery PATIENT NAME: Myra Colunga DATE OF : 1970 ADMISSION DATE: 03/02/2023 7:13 AM TODAY'S DATE: 03/02/2023 HISTORY OF PRESENT ILLNESS: The patient is a 53 y.o. female who presents with morbid obesity and a Body mass index is 46.59 kg/m .. She is undergoing upper gastrointestinal endoscopy with biopsies for Helicobacter pylori. I thoroughly reviewed the patient's medical history, family history, social history and review of systems with the patient today in the office. Please see medical record for pertinent positives. Past Medical History: Past Medical History: Diagnosis Date Arthritis Diabetes (HCC) Hypertension Joint pain Morbid obesity, unspecified obesity type (HCC) 01/15/2023 BEATRICE (obstructive sleep apnea) Past Surgical History: Past Surgical History: Procedure Laterality Date SECTION, LOW TRANSVERSE 2000 and 2001 pfannenstiel DILATION AND CURETTAGE OF UTERUS 2008 ENDOMETRIAL ABLATION 2012 EYE SURGERY 2006 FOOT SURGERY 2006 plantar fascitis FOOT SURGERY 2006 correction of two claw toes LAP,CHOLECYSTECTOMY (HISTORICAL) 2004 MENISCECTOMY 2018 OTHER SURGICAL HISTORY N/A 1995 LEEP SURGERY TUBAL LIGATION 2001 concurrent to last Current Medications: Current Facility-Administered Medications Medication Dose Route Frequency Provider Last Rate Last Admin sodium chloride 0.9 % infusion 50 mL/hr IntraVENous Continuous ANGEL Najera 50 mL/hr at 03/02/23 0755 Continued by Anesthesia at 03/02/23 0755 Prior to Admission medications Medication Sig Start Date End Date Taking? Authorizing Provider Ellis Moeller 100 UNIT/ML pen 01/20/23 Historical Provider, cholecalciferol (Vitamin D-3) 100 MCG (4000 UT) tablet Take 4,000 Units by mouth daily. 02/08/23 Historical Provider, Cyanocobalamin (Vitamin B-12) [address] 1 Dose under the tongue daily. 02/08/23 Historical Provider, glyBURIDE (Diabeta) 5 MG tablet 11/27/22 Historical ProviderMD lisinopril 10 MG tablet 11/27/22 Historical Provider, Loratadine 10 MG capsule Historical Provider, Respiratory Therapy Supplies (CareTouch CPAP & BIPAP Hose) [facility] [place], Trulicity 1.5 MG/0.5ML solution pen-injector INJECT 1 PEN-INJECTOR SUBCUTANEOUSLY ONCE A WEEK 01/14/23 Historical Provider, Allergies: Allergies Allergen Reactions Codeine Nausea And Vomiting Other reaction(s): Vomiting Metformin Hcl GI upset Social History: Social History Socioeconomic History Marital status: Spouse name: Not on file Number of children: Not on file Years of education: Not on file Highest education level: Not on file Occupational History Not on file Tobacco Use Smoking status: Never Smokeless tobacco: Never Substance and Sexual Activity Alcohol use: Not Currently Drug use: Never Sexual activity: Yes Partners: Male control/protection: Female Sterilization Other Topics Concern Not on file Social History Narrative Not on file Social Determinants of Health Financial Resource Strain: Not on file Food Insecurity: Not on file Transportation Needs: Not on file Physical Activity: Not on file Stress: Not on file Social Connections: Not on file Intimate Partner Violence: Not on file Housing Stability: Not on file Family History: Family History Problem Relation Name Age of Onset Arthritis Mother Tiesha Berkowitz Arthritis Father Dimitri Berkowitz Cancer Father Dimitri Berkowitz Diabetes Father Dimitri Berkowitz Cancer Maternal Grandfather Rafael Silverio Arthritis Maternal Grandmother Zaira Silverio Cancer Paternal Grandfather Cyrus Berkowitz Cancer Paternal Grandmother Renetta Berkowitz Arthritis Brother Jean Paul Berkowitz Cancer Brother Charles Berkowitz Cancer Mother's Brother Jona Silverio Cancer Father's Brother Stephen Berkowitz REVIEW OF SYSTEMS: CONSTITUTIONAL: Negative for fatigue, and unexpected weight change RESPIRATORY: Negative for cough, SOB, and wheezing CARDIOVASCULAR: Negative for chest pains and palpatations GASTROINTESTINAL: Negative for abdominal bloating, constipation, diarrhea. Positive for gastroesophageal reflux disease HEMATOLOGIC/LYMPHATIC: Negative for adenopathy. Does not bruise/bleed easily. NEUROLOGICAL: Negative for seizures and syncope * All other ROS reviewed see HPI for pertinent positives and negatives. PHYSICAL EXAM: VITALS: BP 118/73 Pulse 68 Temp 36.2 C (97.2 F) (Temporal) Resp 16 Ht 5' 5 (1.651 m) Wt 280 lb (127 kg) SpO2 99% BMI 46.59 kg/m GENERAL: Oriented to person, place, and time. Appears well nourished. No distress ENT: Normocepalic,atraumatic, without obvious abnormality NECK: supple, symmetrical, trachea midline LUNGS: Resp effort easy and unlabored, breath sounds normal CARDIOVASCULAR: RRR, No murmur ABDOMEN: Soft, non-tender, no open wounds. MUSCULOSKELETAL: Normal range of motion, ambulatory without assistance NEUROLOGIC: No focal neurologic deficits IMPRESSION/RECOMMENDATIONS: Morbid obesity with Body mass index is 46.59 kg/m .. Plan for EGD with Bx Patient counseled on risks, benefits, and alternatives of treatment plan at length. Patient states an understanding and willingness to proceed with plan. documented in this encounter [facility] [employer] 02-08-2023 Note Please see Vicky c ommunication between pt and this RD. Recommend: 1. Vitamin D3: 4000 international units per day 2. Vitamin B12(SL): 500 mcg/day Both OTC, per pt. Med list updated. Will monitor labs in 3 months. Orders pending. Please sign. Thank you! [facility] [employer] [facility] 02-08-2023 Telephone encounter Note Signed, thanks [employer] Work Phone: 02-08-2023 Miscellaneous Notes Signed, thanks Please see MyChart communication between pt and this RD. Recommend: 1. Vitamin D3: 4000 international units per day 2. Vitamin B12(SL): 500 mcg/day Both OTC, per pt. Med list updated. Will monitor labs in 3 months. Orders pending. Please sign. Thank you! Pre-op_JZ 02/05/2023 Vitamin D: 23 (L) Vitamin B12: 278 (L end NL) Sent MyChart regarding labs. documented in this encounter [facility] 02-08-2023 Telephone encounter Note Please see MyChart communication between pt and this RD. Recommend: 1. Vitamin D3: 4000 international units per day 2. Vitamin B12(SL): 500 mcg/day Both OTC, per pt. Med list updated. Will monitor labs in 3 months. Orders pending. Please sign. Thank you! [facility] 02-08-2023 Telephone encounter Note Pre-op_JZ 02/05/2023 Vitamin D: 23 (L) Vitamin B12: 278 (L end NL) Sent MyChart regarding labs. [facility] 02-05-2023 History of Presen t illness Narrative [facility] BARIATRIC NUTRITION ASSESSMENT / DIET & EXERCISE SURGICAL WEIGHT LOSS MANAGEMENT PROGRAM Date: 02/05/23 Patient Name: Myra Colunga Date of : 1970 Type of Assessment: [x] Surgical Patient - Pre-op Initial Assessment Weight Metrics: Today's Height: 5' 5 (1.651 m) Today's Weight: 286 lb (130 kg) Today's BMI: Body mass index is 47.59 kg/m . Surgeon: Dr. Nickerson Surgical Procedure: [x] Fidel-en-Y Gastric Bypass Preop Diet: 2 wks Medical History: Past Medical History: Diagnosis Date Arthritis Diabetes (HCC) Hypertension Joint pain Morbid obesity, unspecified obesity type (HCC) 01/15/2023 BEATRICE (obstructive sleep apnea) Current Medications: has a current medication list which includes the following prescription(s): basaglar kwikpen, glyburide, lisinopril, loratadine, caretouch cpap & bipap hose, and trulicity. Weight History Patient has been considering weight loss surgery for > 10 years (brother had WLS) Primary reason(s) for weight loss : improve health - get diabetes in remission; get off insulin; feel better; improve mobility Number of years over weight > 10 PREVIOUS WEIGHT LOSS ATTEMPTS Method When Amount lost Amount regained Most successful Diet Past year 14 lb none Post Weight Loss Surgery- Type: Patient's current diet quality, relative to the Past weight loss surgery diet is: [x] N/A CURRENT MEAL PLANNING Self Spouse Significant Other Meals planned by X X Food shopping done by X X Meals cooked by X X EXERCISE/CURRENT ACTIVITY None due to knee pain CURRENT EATING HABITS/ADDITIONAL INFORMATION 24 Hour Recall completed: Yes Breakfast: 7:00 am coffee with sf creamer; 9:00 2 eggs + sausage + coffee Lunch: 1/2 plate NS veggie; portion controlled fruit portion and protein Dinner: low carb pizza Snack: none Drinks: water with sf flavor packet at least 60 oz/day; one a week a diet sprite; rarely etoh; no juice; no sports drinks SUPPORT SYSTEM A. Family knowledgeable about/supportive of plans for weight loss surgery: Yes B. Patient understands that they must have someone in their home 19/10 for the first week following surgery, or that they must be able to stay with someone for the first week Yes C. Co-workers knowledgeable about/supportive of plans for weight loss surgery: Yes KNOWLEDGE AND EDUCATION ASSESSMENT AND PLAN Patient's level of knowledge regarding the changes that will have to be made in their diet following weight loss surgery is: [x] Excellent - patient is well informed. Current eating practices that will require change with surgery: Pt to wean small amount caffeine RECOMMENDATIONS AND PLAN [x] Educational Materials Provided [x]Strategies for Eating handout given to and discussed with patient [x] Patient cleared for weight loss surgery Patient able to state major diet changes that need to be made following surgery Patient states/demonstrates readiness to make necessary diet changes Diagnoses: T2DM Note: Pt and mom present for initial BNA. Pt scheduled for D/E 03/11/2023. Pt brother had WLS. Per diet recall and pt interview, pt does not skip meals, pt practices portion control with all food groups and includes 1/2 plate as NS veggies. Pt includes protein q meal snack. Pt drinks >64 oz/day between 60 oz water + 2 cups coffee. Currently exercise limited due to knee pain. Pt had labs done today; labs are processing. Will monitor. Reviewed BNA packet and rationale for post-op bariatric diet protocol. Pt agreeable to, and aided in developing, the goals as noted below. Pt cleared by nutrition for WLS. Pt informed at time of visit. Goals: Begin weaning caffeine Materials Provided: BNA packet Follow up: PRN Pt encouraged to call/MyChart with questions. Bariatric Nutrition Assessment completed by: Antonia Aviles RD documented in this encounter [facility] 01-27-2023 Telephone encounter Note Pre op check list scanned to media, orders mailed. [facility] 01-27-2023 Miscellaneous Notes Pre op check list scanned to media, orders mailed. Addended by: LANCE REGALADO on: 01/26/2023 10:03 AM Modules accepted: Orders Orders added. EGD documentation encounter created. Checklist completed and provided with orders with clinical team for processing. BARIATRIC AND METABOLIC SURGERY [facility] PATIENT SUMMARY Myra Nickerson 53 y.o. female with Body mass index is 47.26 kg/m . Planned Procedures: Laparoscopic Fidel-en-Y Gastric Bypass DM[x] HTN[x] BEATRICE[x] GERD[] HL[] OA[] TOB[] Date of Surgery: TBD FANG Ramos INITIAL PRE-OP TESTING ORDERS/ RESULTS Labwork [x] CMP, TSH, Fasting Lipid Profile, Mg, Zinc, Vit B1 (whole blood), Vit B12, 25-OH Vit D, Fe, Ferritin, Folate, Hgb A1c EGD [x] Dx: [] GERD [x] Dyspepsia [] Other [] Not ordered Pathology [x] H. pylori [] Negative [] Positive [] Stool Antigen UGI [] US Abdomen [] [x] S/p britton [] Not ordered BEATRICE eval [x] [x] On CPAP / Obtain settings Toxicology [] [] Urine drug screen/ETOH [] Nicotine Additional [] INITIAL CONSULTATIONS ORDERED CLEARANCE / MANAGEMENT Psychology [x] Dietitian [x] Cardiology [x] Pulmonary [x] Others [] []Heme/Onc []Pain mgmt []Other: PSD [x] Physician supervised diet: [x]None []3 mos []6 mos Preop diet [x] Preop low calorie diet: []1 wk [x]2 wks [] Other: FINAL PRE-OP TESTING ORDERS RESULTS Labwork [x] [x] CBC [x]BMP []Serum Nicotine / Cotinine EKG [x] CXR [] POST-OP MEDICATIONS Ulcer Ppx [] Omeprazole 20 mg PO []QD Gallstone Ppx [] Ursodiol 300 mg []BID DVT Ppx [] DVT prophylaxis per final preop visit estimated risk Estimated calculated risk: % Schedule final pre-operative office visit with surgeon, pre-operative education class, and pre-operative exercise class prior to date of surgery She does not have insurance benefit for weight loss surgery and as result has met with our financial counselor with regards to a private pay platform including to discuss the individual financial risks of this process. All of her questions were answered to her satisfaction. Initial New [facility] surgical patient Navigation & Financial Counseling Discussion Patient Communication: In office SURGEON: [x] JZ [] AD [] MP [] TB [] LM PROCEDURE: [] LRYGB [x] LSG [] OKSANA-S [] OKSANA [] UNDECIDED [] REV: SPECIFY: Confirmed pt wants to continue with surgical program/plan [x] YES [] NO (complete program withdrawal note/process) CO-MORBIDS: [] NONE [] DM []HTN [] BEATRICE []GERD [] OTH: PRIVATE PAY: [] NO []YES DATE OF INITIAL BENEFITS VERIFICATION: TRANSFER FU: [] YES [] NO PRIMARY INSURANCE: Payor: [employer] / Plan: [facility] UMR OPT [id number] / Product Type: Commercial / BENEFIT ON PLAN: [] NO [] YES BENEFIT MAX: [] NO [] YES -- BENEFIT MAX: $ EMPLOYER: DIET AND EXERCISE (DE) REQUIREMENT PRIMARY [] NONE []3M [] 6M []9M [] Medicare 4 Months [] SPR (3M) []OTHER: SECONDARY INSURANCE: BENEFIT ON PLAN: [] NO [] YES BENEFIT MAX: [] NO [] YES -- BENEFIT MAX: $ AUTH REQUIRED FROM SECONDARY [] NO [] YES DIET AND EXERCISE REQUIREMENT SECONDARY [] NONE []3M [] 6M [] Medicare 4 months [] SPR (3M) []OTHER: ___ [x] Discussed with patient: Financial cost overview (document signed and pt given copy at new pt consult visit with surgeon), Initial appointments: Bariatric Nutrition Assessment (BNA) & Diet and Exercise (DE) Patient to look for yellow envelope in mail. This yellow envelope will contain orders for labs, testing and required clearances. Pt encouraged to complete early in program to prevent delays. Encourage blood work to be draw by 1st DE appointment. [x] Reviewed OOP cost, including: [] Optifast cost of approximately $130-140/week x weeks immediately prior to surgery - used to induce rapid weight loss which results in decrease in size of liver and therefore facilitates laparoscopically surgery approach. [x] Overview of inpatient admission benefits - estimated inpatient co-pays, deductibles and/or co-insurance - Estimated OOP costs form reviewed with patient, and copy given to patient at new pt visit. [x] Reviewed next steps with patient: 1) Scheduled at new pt surgeon visit: Senior Electrical Controls Engineer (RD) for a Nutrition Assessment (BNA) and Pre-operative Diet and Exercise (DE) appointment #1. [x] Patient reminded to arrive 15 minutes early for check in. Late arrivals may need to be rescheduled. 2) Schedule: Diet and Exercise Apt #2 only scheduled after initial BNA and DE completed, 3) Behavioral Health apt scheduled after DE started. Reviewed rational and goal of Behavioral Health appointments. 4) [x] Reinforced need to cancel any WMI appointments 48 hours in advance. Cautioned NS/Same day cancellations may result in delay in program or program completion hold. Noted: DE series needs to be a monthly series or insurance company may require repeat of the entire series. 5) [x] Smoker/tobacco products including vaping: reviewed need for cessation before surgery clearance and life long abstinence after surgery for best outcomes. Patient navigation to surgery: [x] Explained to patient that average time from initial consult to date of surgery can be 6-8 months. - Process can take longer if there are cancelled appointments, delays in testing and/or additional clearances that needs to be completed. - Reviewed importance of patient active engagement in making and keeping appointments to keep the process moving. - Reinforced need to cancel appointments at least 48 hours in advance. Reviewed that instances of No Shows and Same Day Appointment Cancellations may result in program/surgery delay or hold. [x] Patient advised of importance of having voicemail and MyChart for office communications and lab/testing results before and after surgery. documented in this encounter [facility] 01-26-2023 Note Addended by: LANCE REGALADO on: 01/26/2023 10:03 AM Modules accepted: Orders [facility] 01-26-2023 Note Addended by: LANCE REGALADO on: 01/26/2023 10:03 AM Modules accepted: Orders [facility] 01-26-2023 Note Addended by: LANCE REGAALDO on: 01/26/2023 10:03 AM Modules accepted: Orders [facility] 01-26-2023 Miscellaneous Notes Addended by: LANCE REGALADO on: 01/26/2023 10:03 AM Modules accepted: Orders Orders added. EGD documentation encounter created. Checklist completed and provided with orders with clinical team for processing. BARIATRIC AND METABOLIC SURGERY [facility] PATIENT SUMMARY Myra Nickerson 53 y.o. female with Body mass index is 47.26 kg/m . Planned Procedures: Laparoscopic Fidel-en-Y Gastric Bypass DM[x] HTN[x] BEATRICE[x] GERD[] HL[] OA[] TOB[] Date of Surgery: TBD FANG Ramos INITIAL PRE-OP TESTING ORDERS/ RESULTS Labwork [x] CMP, TSH, Fasting Lipid Profile, Mg, Zinc, Vit B1 (whole blood), Vit B12, 25-OH Vit D, Fe, Ferritin, Folate, Hgb A1c EGD [x] Dx: [] GERD [x] Dyspepsia [] Other [] Not ordered Pathology [x] H. pylori [] Negative [] Positive [] Stool Antigen UGI [] US Abdomen [] [x] S/p britton [] Not ordered BEATRICE eval [x] [x] On CPAP / Obtain settings Toxicology [] [] Urine drug screen/ETOH [] Nicotine Additional [] INITIAL CONSULTATIONS ORDERED CLEARANCE / MANAGEMENT Psychology [x] Dietitian [x] Cardiology [x] Pulmonary [x] Others [] []Heme/Onc []Pain mgmt []Other: PSD [x] Physician supervised diet: [x]None []3 mos []6 mos Preop diet [x] Preop low calorie diet: []1 wk [x]2 wks [] Other: FINAL PRE-OP TESTING ORDERS RESULTS Labwork [x] [x] CBC [x]BMP []Serum Nicotine / Cotinine EKG [x] CXR [] POST-OP MEDICATIONS Ulcer Ppx [] Omeprazole 20 mg PO []QD Gallstone Ppx [] Ursodiol 300 mg []BID DVT Ppx [] DVT prophylaxis per final preop visit estimated risk Estimated calculated risk: % Schedule final pre-operative office visit with surgeon, pre-operative education class, and pre-operative exercise class prior to date of surgery She does not have insurance benefit for weight loss surgery and as result has met with our financial counselor with regards to a private pay platform including to discuss the individual financial risks of this process. All of her questions were answered to her satisfaction. Initial New [facility] surgical patient Navigation & Financial Counseling Discussion Patient Communication: In office SURGEON: [x] FANG [] AD [] MP [] TB [] LM PROCEDURE: [] LRYGB [x] LSG [] OKSANA-S [] OKSANA [] UNDECIDED [] REV: SPECIFY: Confirmed pt wants to continue with surgical program/plan [x] YES [] NO (complete program withdrawal note/process) CO-MORBIDS: [] NONE [] DM []HTN [] BEATRICE []GERD [] OTH: PRIVATE PAY: [] NO []YES DATE OF INITIAL BENEFITS VERIFICATION: TRANSFER FU: [] YES [] NO PRIMARY INSURANCE: Payor: [facility] / Plan: [facility] UMR OPT [id number] / Product Type: Commercial / BENEFIT ON PLAN: [] NO [] YES BENEFIT MAX: [] NO [] YES -- BENEFIT MAX: $ EMPLOYER: DIET AND EXERCISE (DE) REQUIREMENT PRIMARY [] NONE []3M [] 6M []9M [] Medicare 4 Months [] SPR (3M) []OTHER: SECONDARY INSURANCE: BENEFIT ON PLAN: [] NO [] YES BENEFIT MAX: [] NO [] YES -- BENEFIT MAX: $ AUTH REQUIRED FROM SECONDARY [] NO [] YES DIET AND EXERCISE REQUIREMENT SECONDARY [] NONE []3M [] 6M [] Medicare 4 months [] SPR (3M) []OTHER: ___ [x] Discussed with patient: Financial cost overview (document signed and pt given copy at new pt consult visit with surgeon), Initial appointments: Bariatric Nutrition Assessment (BNA) & Diet and Exercise (DE) Patient to look for yellow envelope in mail. This yellow envelope will contain orders for labs, testing and required clearances. Pt encouraged to complete early in program to prevent delays. Encourage blood work to be draw by 1st DE appointment. [x] Reviewed OOP cost, including: [] Optifast cost of approximately $130-140/week x weeks immediately prior to surgery - used to induce rapid weight loss which results in decrease in size of liver and therefore facilitates laparoscopically surgery approach. [x] Overview of inpatient admission benefits - estimated inpatient co-pays, deductibles and/or co-insurance - Estimated OOP costs form reviewed with patient, and copy given to patient at new pt visit. [x] Reviewed next steps with patient: 1) Scheduled at new pt surgeon visit: Senior Electrical Controls Engineer (RD) for a Nutrition Assessment (BNA) and Pre-operative Diet and Exercise (DE) appointment #1. [x] Patient reminded to arrive 15 minutes early for check in. Late arrivals may need to be rescheduled. 2) Schedule: Diet and Exercise Apt #2 only scheduled after initial BNA and DE completed, 3) Behavioral Health apt scheduled after DE started. Reviewed rational and goal of Behavioral Health appointments. 4) [x] Reinforced need to cancel any WMI appointments 48 hours in advance. Cautioned NS/Same day cancellations may result in delay in program or program completion hold. Noted: DE series needs to be a monthly series or insurance company may require repeat of the entire series. 5) [x] Smoker/tobacco products including vaping: reviewed need for cessation before surgery clearance and life long abstinence after surgery for best outcomes. Patient navigation to surgery: [x] Explained to patient that average time from initial consult to date of surgery can be 6-8 months. - Process can take longer if there are cancelled appointments, delays in testing and/or additional clearances that needs to be completed. - Reviewed importance of patient active engagement in making and keeping appointments to keep the process moving. - Reinforced need to cancel appointments at least 48 hours in advance. Reviewed that instances of No Shows and Same Day Appointment Cancellations may result in program/surgery delay or hold. [x] Patient advised of importance of having voicemail and MyChart for office communications and lab/testing results before and after surgery. documented in this encounter [facility] 01-26-2023 History of Presen t illness Narrative ENDOSCOPY ORDERS To be scheduled with: Dr. Nickerson Patient is: Pre-op/Pre-Bariatric Surgery CPT code: EGD with biopsy- CPT 05690 Diagnosis: Dyspepsia- K30 If pre-op, Diet & Exercise Requirements are, and started/scheduled on 03/11/23: Other: one visit only Home O2: No Known Difficult Intubation: No Is patient on a GLP-1 agonist? Yes If yes- which one? Trulicity (dulaglutide) Please advise that patient hold this medication for 1 week before EGD EGD W BIOPSY scheduled Date: 03/02 Time: 8:30 Place: [address] [place] [address] Patient notified via phone and my chart. printed documented in this encounter [facility] 01-26-2023 Telephone encounter Note Orders added. EGD documentation encounter created. Checklist completed and provided with orders with clinical team for processing. BARIATRIC AND METABOLIC SURGERY [facility] PATIENT SUMMARY Myra Nickerson 53 y.o. female with Body mass index is 47.26 kg/m . Planned Procedures: Laparoscopic Fidel-en-Y Gastric Bypass DM[x] HTN[x] BEATRICE[x] GERD[] HL[] OA[] TOB[] Date of Surgery: TBCapri Ramos INITIAL PRE-OP TESTING ORDERS/ RESULTS Labwork [x] CMP, TSH, Fasting Lipid Profile, Mg, Zinc, Vit B1 (whole blood), Vit B12, 25-OH Vit D, Fe, Ferritin, Folate, Hgb A1c EGD [x] Dx: [] GERD [x] Dyspepsia [] Other [] Not ordered Pathology [x] H. pylori [] Negative [] Positive [] Stool Antigen UGI [] US Abdomen [] [x] S/p britton [] Not ordered BEATRICE eval [x] [x] On CPAP / Obtain settings Toxicology [] [] Urine drug screen/ETOH [] Nicotine Additional [] INITIAL CONSULTATIONS ORDERED CLEARANCE / MANAGEMENT Psychology [x] Dietitian [x] Cardiology [x] Pulmonary [x] Others [] []Heme/Onc []Pain mgmt []Other: PSD [x] Physician supervised diet: [x]None []3 mos []6 mos Preop diet [x] Preop low calorie diet: []1 wk [x]2 wks [] Other: FINAL PRE-OP TESTING ORDERS RESULTS Labwork [x] [x] CBC [x]BMP []Serum Nicotine / Cotinine EKG [x] CXR [] POST-OP MEDICATIONS Ulcer Ppx [] Omeprazole 20 mg PO []QD Gallstone Ppx [] Ursodiol 300 mg []BID DVT Ppx [] DVT prophylaxis per final preop visit estimated risk Estimated calculated risk: % Schedule final pre-operative office visit with surgeon, pre-operative education class, and pre-operative exercise class prior to date of surgery She does not have insurance benefit for weight loss surgery and as result has met with our financial counselor with regards to a private pay platform including to discuss the individual financial risks of this process. All of her questions were answered to her satisfaction. [facility] [employer] 01-21-2023 Note Initial New [facility] surg ical patient Navigation & Financial Counseling Discussion Patient Communication: In office SURGEON: [x] FANG [] AD [] MP [] TB [] LM PROCEDURE: [] LRYGB [x] LSG [] OKSANA-S [] OKSANA [] UNDECIDED [] REV: SPECIFY: Confirmed pt wants to continue with surgical program/plan [x] YES [] NO (complete program withdrawal note/process) CO-MORBIDS: [] NONE [] DM []HTN [] BEATRICE []GERD [] OTH: PRIVATE PAY: [] NO []YES DATE OF INITIAL BENEFITS VERIFICATION: TRANSFER FU: [] YES [] NO PRIMARY INSURANCE: Payor: [facility] [employer] / Plan: [facility] UMR OPT [id number] / Product Type: Commercial / BENEFIT ON PLAN: [] NO [] YES BENEFIT MAX: [] NO [] YES -- BENEFIT MAX: $ EMPLOYER: DIET AND EXERCISE (DE) REQUIREMENT PRIMARY [] NONE []3M [] 6M []9M [] Medicare 4 Months [] SPR (3M) []OTHER: SECONDARY INSURANCE: BENEFIT ON PLAN: [] NO [] YES BENEFIT MAX: [] NO [] YES -- BENEFIT MAX: $ AUTH REQUIRED FROM SECONDARY [] NO [] YES DIET AND EXERCISE REQUIREMENT SECONDARY [] NONE []3M [] 6M [] Medicare 4 months [] SPR (3M) []OTHER: ___ [x] Discussed with patient: Financial cost overview (document signed and pt given copy at new pt consult visit with surgeon), Initial appointments: Bariatric Nutrition Assessment (BNA) & Diet and Exercise (DE) Patient to look for yellow envelope in mail. This yellow envelope will contain orders for labs, testing and required clearances. Pt encouraged to complete early in program to prevent delays. Encourage blood work to be draw by 1st DE appointment. [x] Reviewed OOP cost, including: [] Optifast cost of approximately $130-140/week x weeks immediately prior to surgery - used to induce rapid weight loss which results in decrease in size of liver and therefore facilitates laparoscopically surgery approach. [x] Overview of inpatient admission benefits - estimated inpatient co-pays, deductibles and/or co-insurance - Estimated OOP costs form reviewed with patient, and copy given to patient at new pt visit. [x] Reviewed next steps with patient: 1) Scheduled at new pt surgeon visit: Senior Electrical Controls Engineer (RD) for a Nutrition Assessment (BNA) and Pre-operative Diet and Exercise (DE) appointment #1. [x] Patient reminded to arrive 15 minutes early for check in. Late arrivals may need to be rescheduled. 2) Schedule: Diet and Exercise Apt #2 only scheduled after initial BNA and DE completed, 3) Behavioral Health apt scheduled after DE started. Reviewed rational and goal of Behavioral Health appointments. 4) [x] Reinforced need to cancel any [facility] appointments 48 hours in advance. Cautioned NS/Same day cancellations may result in delay in program or program completion hold. Noted: DE series needs to be a monthly series or insurance company may require repeat of the entire series. 5) [x] Smoker/tobacco products including vaping: reviewed need for cessation before surgery clearance and life long abstinence after surgery for best outcomes. Patient navigation to surgery: [x] Explained to patient that average time from initial consult to date of surgery can be 6-8 months. - Process can take longer if there are cancelled appointments, delays in testing and/or additional clearances that needs to be completed. - Reviewed importance of patient active engagement in making and keeping appointments to keep the process moving. - Reinforced need to cancel appointments at least 48 hours in advance. Reviewed that instances of No Shows and Same Day Appointment Cancellations may result in program/surgery delay or hold. [x] Patient advised of importance of having voicemail and MyChart for office communications and lab/testing results before and after surgery. [facility] 01-21-2023 Telephone encounter Note Initial New [facility] surgical patient Navigation & Financial Counseling Discussion Patient Communication: In office SURGEON: [x] FANG [] AD [] MP [] TB [] LM PROCEDURE: [] LRYGB [x] LSG [] OKSANA-S [] OKSANA [] UNDECIDED [] REV: SPECIFY: Confirmed pt wants to continue with surgical program/plan [x] YES [] NO (complete program withdrawal note/process) CO-MORBIDS: [] NONE [] DM []HTN [] BEATRICE []GERD [] OTH: PRIVATE PAY: [] NO []YES DATE OF INITIAL BENEFITS VERIFICATION: TRANSFER FU: [] YES [] NO PRIMARY INSURANCE: Payor: [facility] / Plan: [facility] UMR OPT [id number] / Product Type: Commercial / BENEFIT ON PLAN: [] NO [] YES BENEFIT MAX: [] NO [] YES -- BENEFIT MAX: $ EMPLOYER: DIET AND EXERCISE (DE) REQUIREMENT PRIMARY [] NONE []3M [] 6M []9M [] Medicare 4 Months [] SPR (3M) []OTHER: SECONDARY INSURANCE: BENEFIT ON PLAN: [] NO [] YES BENEFIT MAX: [] NO [] YES -- BENEFIT MAX: $ AUTH REQUIRED FROM SECONDARY [] NO [] YES DIET AND EXERCISE REQUIREMENT SECONDARY [] NONE []3M [] 6M [] Medicare 4 months [] SPR (3M) []OTHER: ___ [x] Discussed with patient: Financial cost overview (document signed and pt given copy at new pt consult visit with surgeon), Initial appointments: Bariatric Nutrition Assessment (BNA) & Diet and Exercise (DE) Patient to look for yellow envelope in mail. This yellow envelope will contain orders for labs, testing and required clearances. Pt encouraged to complete early in program to prevent delays. Encourage blood work to be draw by 1st DE appointment. [x] Reviewed OOP cost, including: [] Optifast cost of approximately $130-140/week x weeks immediately prior to surgery - used to induce rapid weight loss which results in decrease in size of liver and therefore facilitates laparoscopically surgery approach. [x] Overview of inpatient admission benefits - estimated inpatient co-pays, deductibles and/or co-insurance - Estimated OOP costs form reviewed with patient, and copy given to patient at new pt visit. [x] Reviewed next steps with patient: 1) Scheduled at new pt surgeon visit: Senior Electrical Controls Engineer (RD) for a Nutrition Assessment (BNA) and Pre-operative Diet and Exercise (DE) appointment #1. [x] Patient reminded to arrive 15 minutes early for check in. Late arrivals may need to be rescheduled. 2) Schedule: Diet and Exercise Apt #2 only scheduled after initial BNA and DE completed, 3) Behavioral Health apt scheduled after DE started. Reviewed rational and goal of Behavioral Health appointments. 4) [x] Reinforced need to cancel any WMI appointments 48 hours in advance. Cautioned NS/Same day cancellations may result in delay in program or program completion hold. Noted: DE series needs to be a monthly series or insurance company may require repeat of the entire series. 5) [x] Smoker/tobacco products including vaping: reviewed need for cessation before surgery clearance and life long abstinence after surgery for best outcomes. Patient navigation to surgery: [x] Explained to patient that average time from initial consult to date of surgery can be 6-8 months. - Process can take longer if there are cancelled appointments, delays in testing and/or additional clearances that needs to be completed. - Reviewed importance of patient active engagement in making and keeping appointments to keep the process moving. - Reinforced need to cancel appointments at least 48 hours in advance. Reviewed that instances of No Shows and Same Day Appointment Cancellations may result in program/surgery delay or hold. [x] Patient advised of importance of having voicemail and MyChart for office communications and lab/testing results before and after surgery. [facility] [employer] 01-21-2023 History of Presen t illness Narrative [facility] WEIGHT [facility] MANAGEMENT PROGRAM Rooming Note - INITIAL CONSULTATION Patient: Myra Colunga Date of : 1970 Service Date: 01/21/2023 Patient is here today to discuss the possibility of weight loss surgery. This patient is accompanied by spouse for the evaluation today she is interested in discussing weight loss surgery. Physician Supervised D/E: SELF PAY Weight Metrics: Vitals BP: 137/81 Heart Rate: 78 Resp: 16 Temp: 36.3 C (97.3 F) Baseline Measures Initial Height: 5' 5 (165.1 cm) Initial Weight: 284 lb (129 kg) Initial BMI: 47.4 Initial EBW: 159 lb (72.1 kg) Initial Waist Cricumference: 51.5 Initial Neck Circumference: 15.5 Falls Risk Assessment Patient doestake medications which affect BP or mental status Patient does not have newly prescribed or changed dosage of medications within past 30 days which affect BP or mental status Patient has fallen in the past 2 months Patient does demonstrate unsteady gait Patient uses the following ambulatory assistive devices: none Patient is low risk for falls. If high or moderate risk, patient instructed not to ambulate independently in the Center, and cord for call light placed within reach of patient. History of Difficult Intubation: No Patient is not on home O2 Completed by: Amber Camacho Images from the original note were not included. [facility] SURGICAL PROGRAM INITIAL EVALUATION Patient: Myra Colunga Date of : 1970 Service Date: 01/21/23 Patient History: The patient is a pleasant 53 y.o. year old female with morbid obesity, who stands Height: 5' 5 (165.1 cm) ([facility] ht check) tall with a weight of Weight: 284 lb (129 kg) , resulting in a BMI of Body mass index is 47.26 kg/m .. She is interested in discussing weight loss surgery. The patient suffers from multiple co-morbidities as a result of morbid obesity, including: Office notes reviewed: Last A1C 7.2 PMHx: Past Medical History: Diagnosis Date Arthritis Diabetes (HCC) Hypertension Joint pain Morbid obesity, unspecified obesity type (HCC) 01/15/2023 BEATRICE (obstructive sleep apnea) Co-Morbidity Assessment Co-Morbidity Initial Evaluation Today s Visit Type 2 DM Y HTN Y BEATRICE Y GERD N Elevated CHO/Lipids N Depression N The patient denies a history of myocardia infarction, deep vein thrombosis, pulmonary embolism, renal failure, hepatic failure, stroke, and seizure. PSHx: Past Surgical History: Procedure Laterality Date SECTION, LOW TRANSVERSE 2000 and 2001 pfannenstiel DILATION AND CURETTAGE OF UTERUS 2007 ENDOMETRIAL ABLATION 2012 EYE SURGERY 2006 FOOT SURGERY 2006 plantar fascitis FOOT SURGERY 2006 correction of two claw toes LAP,CHOLECYSTECTOMY (HISTORICAL) 2003 MENISCECTOMY 2018 OTHER SURGICAL HISTORY N/A 1995 LEEP SURGERY TUBAL LIGATION 2001 concurrent to last Social History: This patient is with spouse for the evaluation today, She does not smoke, and does not drink alcohol. ROS: General: negative for - chills, fatigue, fever or malaise Ophthalmic: negative for - blurry vision, double vision or dry eyes ENT: negative for - headaches, hearing change, nasal congestion, sinus pain or sore throat Endocrine: negative for - hot flashes, polydipsia/polyuria or skin changes Respiratory: negative for - cough, shortness of breath or wheezing Cardiovascular: negative for - chest pain, dyspnea on exertion, irregular heartbeat, murmur, rapid heart rate or shortness of breath Gastrointestinal: negative for - change in bowel habits, hemoptysis, hematemesis, hematochezia, dysphagia, nausea, vomiting, diarrhea, constipation, weight loss Genito-Urinary: negative for - dysuria, hematuria, incontinence or nocturia Musculoskeletal: negative for - joint pain, joint stiffness, joint swelling, muscle pain or muscular weakness Neurological: negative for - confusion, dizziness, headaches or numbness/tingling Physical Examination: BP 137/81 Pulse 78 Temp 36.3 C (97.3 F) Resp 16 Ht 5' 5 (1.651 m) Comment: [facility] check Wt 284 lb (129 kg) BMI 47.26 kg/m General: This patient is awake, alert, and oriented, and is in no apparent distress. Respiratory: Non-labored breathing Abdomen: Obese, soft, non-tender, non-distended, without masses. Incisions consistent with previous surgeries. Lap port sites from britton and pfannenstiel from Head and Neck: Obese, normocephalic and atraumatic. Soft and supple. Extremities: No cyanosis, clubbing or edema/ No calf tenderness/No restrictions of movement, is ambulatory without assistance. Neurological: Intact x 4 extremities, no focal deficits notes. Skin: No rashes or lesions noted. Rectal: Not Done Hernia: no hernias found on exam Assessment: The patient has failed multiple attempts at non-surgical weight loss, and is now seeking surgical intervention to promote permanent and consistent weight loss. She has chosen Laparoscopic Fidel-en-Y Gastric Bypass. She is well educated regarding it, as she has recently viewed our weight loss surgery informational seminar . In anticipation of weight reductive surgery now or in the future, we spent a great deal of time discussing the risks and benefits of, including but not limited to injury to intra-abdominal organs, breakdown of the gastric staple line, the need for re-operative therapy, prolonged hospitalization, mechanical ventilation, and . We discussed the possibility of bleeding, the need for blood transfusions, blood clots, hospital-acquired and intra-abdominal infection, anastomotic stricture, and worsening GERD. And we discussed the need for post-operative visit compliance, behavior modifications and diet changes, protein and vitamin supplementation, as well as routine scheduled and dedicated exercise. We discussed the potential weight loss benefit of approximately 60-70% of her excess body weight at 12-18 months post-op (LRYGB) and 50% of her excess body weight loss at 12-18 months after a LSG, as well as the possibility of insufficient weight loss or weight gain after 2 years post-operative time. Upon completion of all required pre-operative testing we will submit for insurance pre-authorization. All female patients of childbearing age were advised to refrain from becoming for 12-18 months after weight loss surgery. I advised them to discuss with their physician/veterinary technology instructor regarding contraception to prevent during this period of time after surgery. In addition, all patients were counseled on compliance with prescribed vitamin supplementation, office visit follow-up and compliance with program standards. Plan: I have recommended proceeding with the evaluation, workup and resourcing consultant preoperative consultations and testing for the primary procedure as outlined below: BARIATRIC AND METABOLIC SURGERY [facility] PATIENT SUMMARY Myra Nickerson 53 y.o. female with Body mass index is 47.26 kg/m . Planned Procedures: Laparoscopic Fidel-en-Y Gastric Bypass DM[x] HTN[x] BEATRICE[x] GERD[] HL[] OA[] TOB[] Date of Surgery: RANDALL Ramos INITIAL PRE-OP TESTING ORDERS/ RESULTS Labwork [x] CMP, TSH, Fasting Lipid Profile, Mg, Zinc, Vit B1 (whole blood), Vit B12, 25-OH Vit D, Fe, Ferritin, Folate, Hgb A1c EGD [x] Dx: [] GERD [x] Dyspepsia [] Other [] Not ordered Pathology [x] H. pylori [] Negative [] Positive [] Stool Antigen UGI [] US Abdomen [] [x] S/p britton [] Not ordered BEATRICE eval [x] [x] On CPAP / Obtain settings Toxicology [] [] Urine drug screen/ETOH [] Nicotine Additional [] INITIAL CONSULTATIONS ORDERED CLEARANCE / MANAGEMENT Psychology [x] Dietitian [x] Cardiology [x] Pulmonary [x] Others [] []Heme/Onc []Pain mgmt []Other: PSD [x] Physician supervised diet: [x]None []3 mos []6 mos Preop diet [x] Preop low calorie diet: []1 wk [x]2 wks [] Other: FINAL PRE-OP TESTING ORDERS RESULTS Labwork [x] [x] CBC [x]BMP []Serum Nicotine / Cotinine EKG [x] CXR [] POST-OP MEDICATIONS Ulcer Ppx [] Omeprazole 20 mg PO []QD Gallstone Ppx [] Ursodiol 300 mg []BID DVT Ppx [] DVT prophylaxis per final preop visit estimated risk Estimated calculated risk: % Schedule final pre-operative office visit with surgeon, pre-operative education class, and pre-operative exercise class prior to date of surgery She does not have insurance benefit for weight loss surgery and as result has met with our financial counselor with regards to a private pay platform including to discuss the individual financial risks of this process. All of her questions were answered to her satisfaction. I met with her today to discuss risks and benefits of laparoscopic weight loss surgery, the risks and benefits are outlined as above and visual aids were used to describe the procedure. I personally performed the evaluation and management of Myra Colunga in the development of a treatment plan for this patient. I personally interviewed the patient and performed an individual physical examination. In addition, I discussed the patient's condition and treatment options with them. I have also reviewed and agree with the past medical, family and social history unless otherwise noted. All of the patient's questions were answered. I discussed/counseled the patient regarding the risks and benefits of surgery as well as the preoperative and postoperative care plan for this patient. The patient was seen and examined independently and relevant data reviewed by myself. A full chart review was performed. Due to the complexity of the patients condition as well as having at least one medical condition as listed above in medical history that is progressing despite medical management, this patient is considered high medical decision making and surgical intervention is necessary to help decrease the risk of continued chronic illness. The patient was seen and examined independently and relevant data reviewed by myself. A full chart review was performed. Patient Care Team: Javon Ramos as PCP - General (Cardiology) Javon Nickerson MD as Surgeon (General Surgery) documented [facility] this encounter [facility] BEATRICE (obstructive sleep apnea)- Primary Obstructive sleep apnea (adult) (pediatric) Primary hypertension Unspecified essential hypertension Type 2 diabetes mellitus without complication, with long-term current use of insulin ([facility]) ([facility]) Morbid obesity with BMI of 45.0-49.9, adult ([facility]) Pre-operative laboratory examination Pre-procedural laboratory examination Pre-operative clearance Unspecified pre-operative examination Functional dyspepsia Dyspepsia and other specified disorders of function of stomach documented in this encounter [facility]* Diagnosis BEATRICE (obstructive sleep apnea)- Primary Obstructive sleep apnea (adult) (pediatric) Primary hypertension Unspecified essential hypertension Type 2 diabetes mellitus without complication, with long-term current use of insulin ([facility]) ([facility]) Morbid obesity with BMI of 45.0-49.9, adult ([facility]) Pre-operative laboratory examination Pre-procedural laboratory examination Pre-operative clearance Unspecified pre-operative examination Functional dyspepsia Dyspepsia and other specified disorders of function of stomach documented in this encounter [facility]* Diagnosis Type 2 diabetes mellitus without complication, with long-term current use of insulin ([facility]) ([facility])- Primary Functional dyspepsia Dyspepsia and other specified disorders of function of stomach documented in this encounter [facility]* Diagnosis Vitamin D deficiency- Primary Low vitamin B12 level Functional dyspepsia Dyspepsia and other specified disorders of function of stomach [facility] Diagnosis Hiatal hernia- Primary Diaphragmatic hernia without mention of obstruction or gangrene Functional dyspepsia Dyspepsia and other specified disorders of function of stomach Morbid obesity, unspecified obesity type (HCC) Chronic superficial gastritis without bleeding Diabetes ([facility]) Type II or unspecified type diabetes mellitus without mention of complication, not stated as uncontrolled Hypertension Unspecified essential hypertension BEATRICE (obstructive sleep apnea) Obstructive sleep apnea (adult) (pediatric) Gastric polyp Benign neoplasm of stomach documented in this encounter [facility] note* Diagnosis Pre-operative clearance- Primary Unspecified pre-operative examination BEATRICE (obstructive sleep apnea) Obstructive sleep apnea (adult) (pediatric) Morbid obesity with BMI of 45.0-49.9, adult (HCC) documented in this encounter [facility] note* Diagnosis Morbid obesity due to excess calories (HCC)- Primary Hypertension, unspecified type documented in this encounter [facility] note* Diagnosis Pre-op examination BEATRICE (obstructive sleep apnea) Obstructive sleep apnea (adult) (pediatric) Primary hypertension Unspecified essential hypertension Type 2 diabetes mellitus without complication, with long-term current use of insulin ([facility]) (HCC) Morbid obesity with BMI of 45.0-49.9, adult (HCC) Pre-operative clearance Unspecified pre-operative examination documented in this encounter [facility] note* Diagnosis Morbid obesity due to excess calories (HCC)- Primary Hypertension, unspecified type documented in [facility] encounter [facility] Discharge instructions* Attachments The following attachments cannot be sent through Care Everywhere. * Upper GI Endoscopy Discharge Instructions ([place]) documented in this [facility] for referral (narrative)* Consultation (Routine) - Pending Review Specialty Diagnoses / Procedures Referred By Mali solorio Referred To Contact Pulmonary Disease / Pulmonology Diagnoses BEATRICE (obstructive sleep apnea) Morbid obesity with BMI of 45.0-49.9, adult (HCC) Pre-operative clearance Procedures [place] OFFICE/OUTPATIENT [facility] 60-74 MINUTES Lance Regalado PA [address] [place] [address] [facility] [address] [place] [address] Referral ID Status Reason Start Date Expiration Date Visits Requested Visits Authorized [id number] Pending Review Specialty Services Required 3 01/26/2024 1 1 * Consultation (Elective) - Pending Review Specialty Diagnoses / Procedures Referred By Contac t Referred To Contact Cardiology Diagnoses BEATRICE (obstructive sleep apnea) Primary hypertension Type 2 diabetes mellitus without complication, with long-term current use of insulin ([facility]) (HCC) Morbid obesity with BMI of 45.0-49.9, adult ([facility]) Pre-operative clearance Procedures [place] OFFICE/OUTPATIENT NEW HIGH MDM 60-74 MINUTES Lance Regalado PA [address] [place] [address] [facility] Cf Card [address] [place] [address] Referral ID Status Reason Start Date Expiration Date Visits Requested Visits Authorized [id number] Pending Review Specialty Services Required 3 01/26/2024 1 1 [facility] Purpose Family History Diabetes Mellitus Type II Status:Active Commen ts:Brother. Father. Father Status:Active Comments: d. Hypothyroidism Status:Active Comments:Brother . Mother Status:Active Comments:In good health. Diabetes Mellitus Type II Status:Active Commen ts:Brother. Father. Father Status:Active Comments: d. Hypothyroidism Status:Active Comments:Brother . Mother Status:Active Comments:In good health. Diabetes Mellitus Type II Status:Active Commen ts:Brother. Father. Father Status:Active Comments: d. Hypothyroidism Status:Active Comments:Brother . Mother Status:Active Comments:In good health. Advance Directives Latest Code Status on File Code Status Date Activated Date Inactivated Comments Full Code 03/02/2023 7:17 AM 03/02/2023 10:54 AM Latest Code Status on File Code Status Date Activated Date Inactivated Comments Full Code 03/02/2023 7:17 AM 03/02/2023 10:54 AM Additional Source Comments INFORMATION SOURCE (unrecogn ized section and content) DATE CREATED AUTHOR AUTHOR'S ORGANIZ ATION 11/28/2022 [facility] DATE CREATED AUTHOR AUTHOR'S ORGANIZ ATION 03/31/2023 [facility] Reason for Visit (unrecogniz ed section and content) Specialty Diagnoses / Procedures Referred By Contac t Referred To Contact Bariatrics Diagnoses Morbid (severe) obesity due to excess calories (HCC) Procedures EVAL AND TREAT System, Provider Not In DO NOT CHANGE DO NOT CHANGE, [place] [facility] [address] [place] [address] Referral ID Status Reason Start Date Expiration Date V isits Requested Visits Authorized [id number] Pending Review 01/07/2023 01/07/2024 1 1 Reason Onset Date Comments Financial File 01/21/2023 Financial File 2 023 Surgery Scheduling 01/21/2023 Initial sched uling-orders placed Reason Comments EGD Reason Comments Nutrition Counseling BNA initial Reason Onset Date Comments Abnormal Lab 02/08/2023 Low Vitamin D an d low normal Vitamin B12 Specialty Diagnoses / Procedures Referred By Contac t Referred To Contact Diagnoses Functional dyspepsia Functional dyspepsia [K30] Procedures [place] EGD TRANSORAL BIOPSY SINGLE/MULTIPLE EGD WITH BIOPSY Javon Nickerson MD [address] [place] [address] [facility] [address] [place] [address] Referral ID Status Reason Start Date Expiration Date Visits Re quested Visits Authorized [id number] 1 1 Reason Comments New Patient Specialty Diagnoses / Procedures Referred By Contac t Referred To Contact Pulmonary Disease / Pulmonology Diagnoses BEATRICE (obstructive sleep apnea) Morbid obesity with BMI of 45.0-49.9, adult (HCC) Pre-operative clearance Procedures [place] OFFICE/OUTPATIENT NEW HIGH MDM 60-74 MINUTES Lance Regalado PA [address] [place] [address] [facility] [address] [place] [address] Referral ID Status Reason Start Date Expiration Date Visits Requested Visits Authorized [id number] Pending Review Specialty Services Required 01/26/2024 1 1 Reason Comments Weight Loss D/E new Reason Comments Pre-op Exam Specialty Diagnoses / Procedures Referred By Mali t Referred To Contact Cardiology Diagnoses BEATRICE (obstructive sleep apnea) Primary hypertension Type 2 diabetes mellitus without complication, with long-term current use of insulin ([facility]) (HCC) Morbid obesity with BMI of 45.0-49.9, adult ([facility]) Pre-operative clearance Procedures [place] OFFICE/OUTPATIENT NEW HIGH MDM 60-74 MINUTES Lance Regalado PA [address] [place] [address] [facility] Card [address] [place] [address] Referral ID Status Reason Start Date Expiration Date V isits Requested Visits Authorized [id number] Closed Specialty Services Required 01/26/2023 01/26/2024 1 1 Care Teams (unrecognized sec tion and content) Silk Spotter Relationship Specialty Start Date End Date Javon Ramos [address] [facility] [place] [phone] PCP - General Cardiology 01/11/23 Javon Nickerson MD [address] [place] [address] Surgeon General Surgery 01/15/23 Silk Spotter Relationship Specialty Start Date End Date Javon Ramos [address] [facility] [place] [phone] PCP - General Cardiology 01/11/23 Javon Nickerson MD [address] [place] [address] Surgeon General Surgery 01/15/23 Silk Spotter Relationship Specialty Start Date End Date Javon Ramos [address] [phone] PCP - General Cardiology 01/11/23 Javon Nickerson MD [address] [place] [address] Surgeon General Surgery 01/15/23 Silk Spotter Relationship Specialty Start Date End Date Javon Ramos [address] [facility] [place] [phone] PCP - General Cardiology 01/11/23 Javon Nickerson MD [address] [place] [address] Street [address] [place], [place] [id number] Surgeon General Surgery 01/15/23 Silk Spotter Relationship Specialty Start Date End Date Javon Ramos [address] [facility] [place] [phone] PCP - General Cardiology 01/11/23 Javon Nickerson MD [address] [place] [address] [address] [place] [address] Surgeon General Surgery 01/15/23 Silk Spotter Relationship Specialty Start Date End Date Javon Ramos [address] [facility] [place] [phone] PCP - General Cardiology 01/11/23 Javon Nickerson MD [address] [place] [address] Surgeon General Surgery 01/15/23 Silk Spotter Relationship Specialty Start Date End Date Javon Ramos [address] [facility] [place] [phone] PCP - General Cardiology 01/11/23 Javon Nickerson MD [address] [facility] [address] [place], [place] [phone] Surgeon General Surgery 01/15/23 Silk Spotter Relationship Specialty Start Date End Date Radha Javon [address] [facility] [place] [phone] PCP - General Cardiology 01/11/23 Javon Nickerson MD [address] [facility] [address] [place] [address] Surgeon General Surgery 01/15/23 Silk Spotter Relationship Specialty Start Date End Date Javon Ramos [address] [facility] [place] [phone] PCP - General Cardiology 01/11/23 Javon Nickerson MD [address] [facility] [address] [place] [address] Surgeon General Surgery 01/15/23 Continuous Active and Recently Administ ered Medications (unrecognized section and content) FOR RECORDS PERTAINING TO PATIENTS WHO ARE OR HAVE BEEN ENROLLED IN A CHEMICAL DEPENDENCY/SUBSTANCEABUSE PROGRAM, SOME INFORMATION MAY BE OMITTED. This clinical summary was aggregated from multiple sources. Caution should be exercised in using it in the provision of clinical care. This summary normalizes information from multiple sources, and as a consequence, information in this document may materially change the coding, format and clinical context of patient data. In addition, data may be omitted in some cases. CLINICAL DECISIONS SHOULD BE BASED ON THE PRIMARY CLINICAL RECORDS. [employer] provides no warranty or guarantee of the accuracy or completeness of information in this document.
[2023-04-27 12:32] VITALS: BP 114/73; PULSE 66; RESP 16; TEMP 36.6; O2SAT 100; BMI 46.9
[2023-04-27] MEDS: Lactated Ringers 1,000 ML 15 ML IV (12:44)
--- NOTE | 2023-04-27 12:54 | HP.PCM_ITS ---
History and Physical Vital Signs 03/23/2309:09 03/23/2317:11 04/16/2412:04/16/2412:02 Height 5 ft 5 in 5 ft 5 in 5 ft 5 in 5 ft 5 in Weight: 285 lb 283 lb BMI 47.4 47.0 BP 138/78 H 137/84 H Blood Pressure Location Lt brachial Position Sitting Intake Visit Reasons: consult/preop needs 20 Structural Draftsman Required: No Is patient in pain?: No Allergies codeine Allergy (Intermediate, Verified 04/16/23 13:02) Vomitingmetformin HCl [From Glucophage] Allergy (Mild, Verified 04/16/23 13:02) Diarrhea Medications glyburide 5 mg tablet 5 mg PO BID 05/02/19 [History Confirmed 04/16/23] lisinopril 10 mg tablet 10 mg PO DAILY 05/02/19 [History Confirmed 04/16/23] dulaglutide 1.5 mg/0.5 mL subcutaneous pen injector (Trulicity) 1.5 mg (0.5 mL) subcut QWEEK #2 mL 05/11/19 [Rx Confirmed 04/16/23] insulin glargine 100 unit/mL (3 mL) subcutaneous pen (Basaglar KwikPen U-100 Insulin) 30 unit subcut .q hs 05/11/19 [History Confirmed 04/16/23] loratadine 10 mg tablet 10 mg PO DAILY 05/11/19 [History Confirmed 04/16/23] misoprostol 200 mcg tablet (Cytotec) 200 mcg PO .complex #2 tabs 04/17/23 [Rx Confirmed 04/17/23] Is last menstrual period known: No Post menopausal: Yes Patient : No : No PFSH Medical History Arthritis Excessive somnolence disorder Hx LEEP (loop electrosurgical excision procedure), cervix, Long-term insulin use in type 2 diabetes Non-smoker Obesity, morbid Obstructive sleep apnea on CPAP BEATRICE (obstructive sleep apnea) plantar fasciitis surgery Seasonal allergies Type 2 diabetes mellitus Vertigo Surgical History H/O dilation and curettage H/O lateral meniscus repair of left knee H/O: History of tubal ligation Hx of cholecystectomy S/P endometrial ablation S/P foot surgery, right S/P LASIK surgery of both eyes Family History Unknown Arthritis Diabetes Hormone disorder Polycystic ovaries Social History Smoking Status: Never smoker HPI consult/preop needs 20 Details: GLADIS TEIXEIRA is a 53 year old who presents for thickened endoemtrium. she was postmenopausal for two years and then had 8 weeks of intermittent spotting, she deneis any bleeding now, no clots and no pelvic pain. she is preparing for bariatric surgeyr in the spring. she had an attempted emb that was uanble to be performed due to stenosis. Female Reproductive History Menopausal Symptoms: No night sweats ROS Const Constitutional: Denies fatigue, night sweats, weight gain or weight loss ENT ENT: Reports system reviewed and no additional complaints, except as documented Cardio Card: Denies chest pain Resp Resp: Denies cough or dyspnea GI GI: Reports as per HPI; Denies abdominal pain, constipation, nausea or vomiting : Denies nipple discharge, urinary frequency, urinary incontinence, urinary hesitancy, urinary urgency, vaginal discharge, vaginal dryness, vaginal odor or vaginal pruritus Musc Musc: Denies arthralgias, back pain or muscle weakness Skin Skin/Breast: Denies alopecia, change in hair, dry skin, breast mass, breast pain, breast skin changes or nipple discharge Neuro Neuro: Reports system reviewed and no additional complaints, except as documented Psych Psych: Reports system reviewed and no additional complaints, except as documented Endo Endo: Denies cold intolerance, excessive sweating, heat intolerance or polydipsia Santiago/Lymph Hematologic/Lymphatic: Denies easy bleeding, Denies easy bruising and Denies lymphadenopathy Exam Const General: cooperative, healthy appearing, comfortable and no acute distress Orientation: alert HENMT Head: normal to inspection and normocephalic Ears: hearing grossly normal bilaterally and external ears normal Nose: external nose normal and nares normal Face and sinus: normal facial exam Neck Neck: normal visual inspection and no lymphadenopathy Thyroid: thyroid normal Chest Chest palpation & inspection: normal inspection of the chest Resp Effort & Inspection: normal respiratory effort Auscultation: clear to auscultation bilaterally Cardio Rate: regular rate Rhythm: regular rhythm Heart Sounds: S1 normal and S2 normal GI Inspection: normal to inspection and non-distended Palpation: soft and no hepatosplenomegaly Musc Other: gross motor intact no deficits, full bilateral strength Skin General: no rashes or lesions noted Neuro General: patient alert, patient awake, moves all extremities and no focal motor deficits Motor: muscle tone normal throughout Extrem General: normal to inspection and no pedal edema Psych Appearance: grossly normal Mental Status: mental status grossly normal Affect: normal affect Speech and Movement: speech and movement normal Coding Level of Care Code Off vis,est,level 4 Diagnoses Obesity E66.9 Stenotic cervical os N88.2 Thickened endometrium R93.89 Postmenopausal bleeding N95.0 Type 2 diabetes mellitus without complication, with long-term current use of insulin E11.9; Z79.4 Diabetes mellitus type: type 2 Diabetes mellitus custodial insulin use: with custodial use Diabetes mellitus complication status: without complication S/P endometrial ablation Z98.890 Assessment and Plan Assessment and Plan (1) Obesity: Status: Acute Comment: planning gastric surgery in spring 2023 (2) Stenotic cervical os: Status: Acute Comment: recommend cytotec preop (3) Thickened endometrium: Status: Acute Comment: 6.6mm lining recommend d and c hysteroscopy possible symphion (4) Postmenopausal bleeding: Status: Acute Comment: failed EMB, will need hysteroscopy, D&C w symphion with physician, first available. Patient wanting definitive surgical intervention (5) Diabetes: Status: Chronic Qualifiers: Diabetes mellitus type: type 2 Diabetes mellitus salvage determiner insulin use: with custodial use Diabetes mellitus complication status: without complication Qualified Code(s): E11.9 - Type 2 diabetes mellitus without complications; Z79.4 - FPC (current) use of insulin (6) S/P endometrial ablation: Status: Acute Medications: New misoprostol (Cytotec) 200 mcg PO .complex 2 tabs 1RF Plan After discussing the patient's diagnosis and treatment plan options, patient wishes to proceed with surgical management. I have discussed with the patient the risks, benefits, and alternatives of the procedure which include but are not limited to risks of anesthesia, bleeding, infection, possible damage to bowel, bladder, or surrounding vasculature which could lead to additional surgery to evaluate any complications. Patient agrees to procedure and wishes to proceed. ACOG/uptodate references given for additional information regarding procedure. UPDATE- I have seen the patient and performed any clinically relevant updates to the history and physical exam. Divya Haider MD
--- NOTE | 2023-04-27 13:32 | PCM.OPRPT ---
Problems Associated Problem List Diagnoses (1) Thickened endometrium: (2) Postmenopausal bleeding: Report of Operation Date of Procedure: 04/27/23 Pre-Operative Diagnosis: see problem list Post-Operative Diagnosis: same Surgery/Procedure Performed:: D&C hysteroscopy Description of Surgical Findings:: narrow cavity scarred post ablation Surgeon: Divya Haider professional development instructor: None Type of Anesthesia: Local MAC Special Medications: none Specimen's removed: EMC Drains: none Estimated Blood Loss (mL): 15 Fluids Replaced: crystalloid Description of Procedure: deficit 0 Patient was prepped and draped in a normal sterile fashion under MAC anesthesia. A weighted speculum was placed in the vagina and the anterior lip of the cervix was grasped with a single-tooth tenaculum. using a tonsil clamp the endocervical canal was popped open and material extruded out through the openign and it was sent to pathology for analysis. Cervix was progressively dilated to allow passage of a 5 mm hysteroscope. The lining was fully visualized and noted to have no thickenings, was narrow and scarred due to previous ablation . Uterine sounded to 7 cm. Curettage was performed and tissue removed , sent to pathology. All instruments were removed from the vagina and excellent hemostasis was noted. Patient was awoken and taken to recovery in stable condition. Grafts/Implants Used: none Procedure Start Time: 13:19 Procedure Stop Time: 13:27 Complications none Admit VTE Documentation VTE Present on Admission: No VTE Mechan Device Prophylaxis: SCD's Multi Select Codes Urinary/Genital Urinary/Genital CPT Codes: 50813 Hysteroscopy,EMC, Polypectomy
--- NOTE | 2023-04-27 13:35 | DCINST_ITS ---
Discharge Instructions Diet Discharge Diet: No restrictions Activity Discharge Activity: Return to Normal Activity, May Shower and May Take a Tub Bath (after 1 week) May resume sexual activity in: 1-2 weeks Weight Bearing Status: Weight bearing as tolerated Lifting Restrictions: none Dressing / Incision Call your doctor if you observe: Fever of 101 or Higher, Using more than 1 pad per hour, Shortness of breath and Uncontrolled pain Follow Up Care Please Follow Up With: Divya Haider MD When: Call [phone] to schedule appointment. Test Results: Test results from this visit will be discussed in further detail at your follow- up appointment, if applicable. Discharge Plan Admission Attending Provider: Divya Haider Primary Care Provider: Kendall Garcia Discharge Orders/Prescriptions Prescriptions: No Action Basaglsaulo Moeller U-100 Insulin 100 unit/mL (3 mL) insulin pen 30 unit SC .q hs Trulicity 1.5 mg/0.5 mL pen injector 1.5 mg SC QWEEK Qty: 2 6RF glyburide 5 mg tablet 5 mg PO BID lisinopril 10 mg tablet 10 mg PO DAILY misoprostol [Cytotec] 200 mcg tablet 200 mcg PO .complex Qty: 2 1RF Rx Instructions: take the night before and two hours prior to the procedure cholecalciferol (vitamin D3) [Vitamin D3] 50 mcg (2,000 unit) tablet 100 mcg PO DAILY cyanocobalamin (vitamin B-12) 1,000 mcg capsule 500 mcg PO DAILY Disposition Disposition (needs filled in before D/C Order can be placed): Home, Self Care
[2023-04-27 13:37] VITALS: BP 114/73; PULSE 73; RESP 18; TEMP 37.2; O2SAT 100
[2023-04-27 13:40] VITALS: BP 114/70; BP 114/73; PULSE 71; RESP 16; O2SAT 99
[2023-04-27 13:45] VITALS: BP 113/73; BP 114/73; PULSE 67; RESP 16; O2SAT 100
[2023-04-27 13:50] VITALS: BP 112/71; BP 114/73; PULSE 67; RESP 16; TEMP 37.1; O2SAT 100
[2023-04-27] MEDS: Oxycodone/Apap 5/325 Tablet PO (14:12)
--- NOTE | 2023-04-27 14:15 | EMB_PTH ---
PATHOLOGY RESULTS PATIENT: GLADIS TEIXEIRA LOC: [facility] [place] U#:[id number] AGE/SX: 53/F ROOM: RE04/27/[address]: Dr. Divya Haider MD : 1970 BED: DIS: 04/27/2023 SPEC #: [id number] RECD: 04/27/23 15:20 STATUS: SHERRI FRANZ #: [id number] TABBY: 04/27/23 14:[address]: Divya Haider DEPT: SURGICAL PATHOLOGY RECD BY: Lyn Ortega ENTERED: 04/28/23 08:34 SP TYPE: ENDOM BX/C MINERVA DR: Dr. Kendall Garcia MD Tissues: Endometrium, NOS Procedures: Surgery Specimen Level IV HEADER OPERATION: Hysteroscopy, D & C Symphion PRE-OP DIAGNOSIS: Thickened endometrium, postmenopausal bleeding TISSUE SUBMITTED: Endometrial curettings MICROSCOPIC DIAGNOSIS Endometrium, curettings: Fragments of benign superficial squamous mucosa. Rare strips of benign superficial glandular mucosa. See comment. AM:sarah 04/29/2023 COMMENT The specimen primarily consists of amorphous, proteinaceous material and blood. Clinical correlation is suggested. MICROSCOPIC DESCRIPTION Slides are reviewed. GROSS DESCRIPTION Received in fixative is one container labeled with the patient's name and designated endometrial curettings. The specimen consists of multiple fragments of hemorrhagic mucoid tissue that in aggregate measure 3.0 x 2.5 x 0.2 cm. The specimen is totally submitted in one cassette. / SJ:sarah 04/28/2023 TC:5 CPT: 87918
[2023-04-27 14:45] VITALS: BP 114/73; BP 98/68; PULSE 59; RESP 16; TEMP 36.1; O2SAT 100
[2023-04-27 15:02] LABS: Bedside Glucose 89 mg/dL (74-106)
== END 2023-04-27 14:57 | disposition home or self-care (01) ==
LOC: SDC 12:10 → AC 12:12
PROVIDERS: PCP Family Medicine; Referring Provider Obstetrics & Gynecology; Visit Provider Obstetrics & Gynecology
PROC: 0UB98ZZ Excision of Uterus, Via Natural or Artificial Opening Endoscopic (ICD-10-PCS; CPT 58558; principal; 2023-04-27 14:00)
DX: N95.0 Postmenopausal bleeding (principal); Z68.42 Body mass index [BMI] 45.0-49.9, adult; E66.01 Morbid (severe) obesity due to excess calories; E11.9 Type 2 diabetes mellitus without complications; Z79.4 Long term (current) use of insulin; G47.33 Obstructive sleep apnea (adult) (pediatric); R93.89 Abnormal findings on diagnostic imaging of other specified body structures; Z79.899 Other long term (current) drug therapy
CPT/HCPCS: 58558; 82962; 86850; 86900; 86901; 88305; J7120; J2405

== ENCOUNTER → 2023-05-11 | Outpatient (CLI) | payer OTHER, SELFPAY ==
--- NOTE | 2023-05-11 10:23 | BI_ITS ---
MAMMOGRAPHY - BILATERAL SCREENING REASON FOR EXAM: Female, 53 years old. Routine annual screening examination. PERTINENT HISTORY: Non-contributory. TECHNIQUE: Digital bilateral breast sofía (3D mammographic acquisition) in the CC and MLO projections. 2-D mediolateral oblique (MLO) and craniocaudad (CC) views of both breasts were obtained. CAD: Full Field Digital Mammography with Computer Added Detection was performed. COMPARISON: Comparison is made with prior study dated April 28, 2022 and February 08, 2021. FINDINGS: Breast Composition: The breasts are almost entirely fatty. There are no dominant masses or suspicious calcifications. Stable benign-appearing bilateral intramammary lymph nodes. No other significant abnormalities are identified. There has been no significant change since the prior study. BI/SCRN MAMM (CAD)W/SOFÍA BILAT IMPRESSION: Stable bilateral screening mammogram. Yearly follow-up mammogram recommended. (A) ASSESSMENT CATEGORY: BIRADS Category 2: Benign. A letter regarding these results will be sent to the patient by the facility within 30 days. Approximately 10% of breast cancers are not detected by mammography. A normal mammogram should not delay biopsy of a clinically suspicious abnormality. [id number] Electronically Signed: Stefan Maldonado MD at 11:22 EST ,
[2023-05-11 11:29] LABS: Vitamin B12 940 pg/mL (211-911); Vitamin D,25 Hydroxy 49.6 ng/mL
== END | disposition home or self-care (01) ==
PROVIDERS: Physician Assistant; PCP Family Medicine; Referring Provider Nurse Practitioner Women's Health; Visit Provider Nurse Practitioner Women's Health
DX: Z12.31 Encounter for screening mammogram for malignant neoplasm of breast (principal); E55.9 Vitamin D deficiency, unspecified; R79.89 Other specified abnormal findings of blood chemistry
CPT/HCPCS: 36415; 77063; 77067; 82306; 82607

== ENCOUNTER → 2024-05-17 | Outpatient (CLI) | payer OTHER, SELFPAY ==
--- NOTE | 2024-05-17 08:41 | BI_ITS ---
PROCEDURE: SCRN MAMM (CAD)W/SOFÍA BILAT REASON FOR EXAM: F, Age 54 y/o, no family history. TECHNIQUE: Bilateral screening digital breast tomosynthesis with 2D and 3D images. Computer aided detection. COMPARISON: Prior exam(s) dating back to May 11, 2023.. FINDINGS: There are scattered areas of fibroglandular density. Stable small benign- appearing right axillary lymph nodes. No suspicious masses, areas of developing architectural distortion, or suspicious calcifications. Stable examination. BI/SCRN MAMM (CAD)W/SOFÍA BILAT IMPRESSION: BI-RADS 2: BENIGN. RECOMMEND ANNUAL MAMMOGRAPHIC SCREENING. Follow-up code: Routine Follow-up The patient will be notified of the results by letter. Reading Location: [place] [address]
== END | disposition home or self-care (01) ==
LOC: OPBI 08:40
PROVIDERS: PCP Family Medicine; Referring Provider Nurse Practitioner Women's Health; Visit Provider Nurse Practitioner Women's Health
DX: Z12.31 Encounter for screening mammogram for malignant neoplasm of breast (principal)
CPT/HCPCS: 77063; 77067